=== PATIENT | female | born 1950 | race Caucasian/White ===

== ENCOUNTER 2021-09-14 10:05 | Outpatient (REF) | payer OTHER, SELFPAY ==
[2021-09-14 10:41] LABS: Binax Internal Control QC Valid; Binax Now Covid-19 Ag Negative (Negative)
== END 2021-09-14 10:06 | disposition home or self-care (01) ==
LOC: HO.LAB 10:05
PROVIDERS: Visit Provider Internal Medicine
DX: Z20.822 Contact with and (suspected) exposure to COVID-19 (principal)
CPT/HCPCS: C9803

== ENCOUNTER → 2021-10-12 15:09 | Outpatient (BNVA) | payer OTHER, SELFPAY | PROVIDERS: PCP Internal Medicine; Visit Provider Psychiatry & Neurology Neurology | DX: G51.32 Clonic hemifacial spasm, left (principal); G47.61 Periodic limb movement disorder; G47.33 Obstructive sleep apnea (adult) (pediatric); I10 Essential (primary) hypertension; E78.5 Hyperlipidemia, unspecified; F41.8 Other specified anxiety disorders; Z99.89 Dependence on other enabling machines and devices; Z95.0 Presence of cardiac pacemaker | CPT/HCPCS: 64612; 99212; J0585 ==

== ENCOUNTER → 2022-03-31 14:02 | Outpatient (BNVA) | payer OTHER, SELFPAY | PROVIDERS: PCP Internal Medicine; Visit Provider Psychiatry & Neurology Neurology | DX: G51.32 Clonic hemifacial spasm, left (principal); G47.61 Periodic limb movement disorder; G47.33 Obstructive sleep apnea (adult) (pediatric) | CPT/HCPCS: 64612; 99211; J0585 ==

== ENCOUNTER → 2022-06-15 14:50 | Outpatient (BNVA) | payer OTHER, SELFPAY | PROVIDERS: PCP Internal Medicine; Visit Provider Nurse Practitioner Family | DX: G47.33 Obstructive sleep apnea (adult) (pediatric) (principal) | CPT/HCPCS: 99212 ==

== ENCOUNTER → 2022-07-28 10:28 | Outpatient (BNVA) | payer OTHER, SELFPAY | PROVIDERS: PCP Internal Medicine; Visit Provider Psychiatry & Neurology Neurology | DX: G51.32 Clonic hemifacial spasm, left (principal); G47.33 Obstructive sleep apnea (adult) (pediatric); G47.61 Periodic limb movement disorder | CPT/HCPCS: 64612; 99211; J0585 ==

== ENCOUNTER → 2022-11-09 14:02 | Outpatient (BNVA) | payer OTHER, SELFPAY | PROVIDERS: PCP Internal Medicine; Visit Provider Psychiatry & Neurology Neurology | DX: G47.33 Obstructive sleep apnea (adult) (pediatric) (principal); G51.32 Clonic hemifacial spasm, left; G47.61 Periodic limb movement disorder | CPT/HCPCS: 64612; 99211; J0585 ==

== ENCOUNTER → 2022-12-07 15:04 | Outpatient (BNVA) | payer OTHER, SELFPAY | PROVIDERS: PCP Internal Medicine; Visit Provider Nurse Practitioner Family | DX: G47.33 Obstructive sleep apnea (adult) (pediatric) (principal); Z99.89 Dependence on other enabling machines and devices | CPT/HCPCS: 99212 ==

== ENCOUNTER 2023-03-01 13:21 | Outpatient (AMB) | payer OTHER, SELFPAY ==
--- NOTE | 2023-03-01 13:37 | A.OFFVIS_ITS ---
Intake Vital Signs 03/01/23 13:39 Height 5 ft 5 in Weight 196 lb BMI 32.6 BP 112/78 Blood Pressure Location Rt brachial Position Sitting Pulse 71 Pulse Source Pulse Oximeter Pulse Oximetry (%) 98 Oxygen Delivery Method Room Air Intake Visit Reasons: Botox(Pharm) Intake Note: Patient presents for botox injection Allergies aspirin Allergy (Intermediate, Verified 03/01/23 13:40) Blister Medication List - Last Reconciled 03/01/23 by Shaniqua Michel MD cephalexin 500 mg PO BID cholecalciferol (vitamin D3) 50 mcg PO DAILY citalopram 20 mg PO DAILY etanercept (Enbrel SureClick) mg subcut fluticasone propionate 50 mcg/actuation 1 spray intranasal DAILY furosemide 40 mg PO DAILY ipratropium-albuterol 0.5 mg-3 mg(2.5 mg base)/3 mL 3 mL inhalation QID PRN latanoprost 0.005% 1 drp ophthalmic (eye) BEDTIME metoprolol succinate ER 50 mg PO DAILY onabotulinumtoxinA (Botox) 100 units IM ONCE 90 days rosuvastatin 10 mg PO BEDTIME tiotropium bromide 1.25 mcg/actuation (Spiriva Respimat) 2.5 mcg inhalation DAILY tobramycin-dexamethasone 0.3-0.1 % (TobraDex) 1 drp ophthalmic (eye) QID HPI HPI Comments History of Present Illness Details 72y/o female comes for treatment with botox .and follow up of sleep apnea ??? side effects were explained again and patient agreed to the procedure . - side effects include increased weakness , droopy eyelids weakness of facial muscles etc. ??? Botulinum toxin type A lot no C [id number] expiration May 2025 was diluted with 1 cc of normal saline at a concentration of 10units in 0.1cc. ??? Muscles injected - L lateral canthus 15 ??? Units ??? Left lateral lower eyelid - 15 units ??? Left lateral upper eyelid - 5 units ??? TOTAL used- 35 units ??? Discarded 65units Her recent sleep study on 08/27/21 was c.w DANY responded to CPAP 12 , hypoxemia and PLMD. Patient wants to be referred for INSPIRE . she had a tele appointment and was told that she is not a candidate . she did not tolerate requip [facility] Medical History Anxiety Asthma Back pain Bronchitis Depression Hemifacial spasm of left side of face HTN (hypertension) Hyperlipidemia Memory loss Neck pain Obstructive sleep apnea Pacemaker Family History Father Heart disease Hair loss Mother Heart disease Diabetes Depression Social History Alcohol intake: never Patient Tobacco Use Status: Never used Tobacco Physical Exam Vital Signs: Last Vital Signs Pulse 71 03/01/23 13:39 BP 112/78 03/01/23 13:39 Pulse Ox 98 03/01/23 13:39 Oxygen Delivery Method Room Air 03/01/23 13:39 BMI result Body Mass Index 32.6 Const Other: left facial spasm General: cooperative, healthy appearing and comfortable Orientation/consciousness: patient oriented x3 Neuro General: patient oriented x3, tone normal, moves all extremities, no focal motor deficits and CN's II-XI intact bilaterally Office Procedures Botulinum toxin Injection 70787 - Facial Nerve Procedure code (CPT) selection complete Office Meds onabotulinumtoxinA Performing Provider: Shaniqua Michel MD Administered by: Shaniqua Michel MD on 03/01/23 14:08 Dose Route Admin Location Lot Number Expiration Date [facility] [place] 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 The total AHI was 101/hr and oxygen pako was 76%. Code(s): G47.33 - Obstructive sleep apnea (adult) (pediatric) (3) Periodic limb movement disorder: Code(s): G47.61 - Periodic limb movement disorder Plan Patient tolerated the procedure well she will call with any side effects Continue CPAP at 12 cm of water Orders: Orders AMB Botulinum toxin Injection - Patient Supplied Today G51.32 - Clonic hemifacial spasm, left Coding Level of Care Code Est Pt Level 1 (38665) Diagnoses Hemifacial spasm of left side of face G51.32 Obstructive sleep apnea G47.33 Periodic limb movement disorder G47.61 CPT Codes Botox Injection - Botox 2: 49811 - Facial Nerve ([id number])
[2023-03-01 13:39] VITALS: BP 112/78; PULSE 71; O2SAT 98; BMI 32.6
== END 2023-03-01 14:11 | disposition home or self-care (01) ==
LOC: HO.HSMS 13:21
PROVIDERS: PCP Internal Medicine; Visit Provider Psychiatry & Neurology Neurology
DX: G51.32 Clonic hemifacial spasm, left (principal)
CPT/HCPCS: 64612

== ENCOUNTER → 2023-03-01 13:21 | Outpatient (BNVA) | payer OTHER, SELFPAY | PROVIDERS: PCP Internal Medicine; Visit Provider Psychiatry & Neurology Neurology | DX: G51.32 Clonic hemifacial spasm, left (principal); G47.33 Obstructive sleep apnea (adult) (pediatric); G47.61 Periodic limb movement disorder | CPT/HCPCS: 64612; J0585 ==

== ENCOUNTER 2023-06-12 13:46 | Outpatient (AMB) | payer OTHER, SELFPAY ==
--- NOTE | 2023-06-12 14:03 | A.OFFVIS_ITS ---
Intake Vital Signs 06/12/23 14:19 Height 5 ft 5 in Weight 193 lb 2 oz BMI 32.1 BP 110/72 Blood Pressure Location Rt brachial Position Sitting Respiration 17 Pulse 72 Pulse Source Pulse Oximeter Pulse Oximetry (%) 97 Oxygen Delivery Method Room Air Intake Visit Reasons: Botox appt-confirmed Intake Note: Pt presents to the office for her Botox injections. Allergies aspirin Allergy (Intermediate, Verified 06/12/23 14:06) Blister Medication List - Last Reconciled 06/12/23 by Shaniqua Michel MD cephalexin 500 mg PO BID cholecalciferol (vitamin D3) 50 mcg PO DAILY citalopram 20 mg PO DAILY etanercept (Enbrel SureClick) mg subcut fluticasone propionate 50 mcg/actuation 1 spray intranasal DAILY furosemide 40 mg PO DAILY ipratropium-albuterol 0.5 mg-3 mg(2.5 mg base)/3 mL 3 mL inhalation QID PRN latanoprost 0.005% 1 drp ophthalmic (eye) BEDTIME metoprolol succinate ER 50 mg PO DAILY onabotulinumtoxinA (Botox) 100 units IM ONCE 90 days rosuvastatin 10 mg PO BEDTIME tiotropium bromide 1.25 mcg/actuation (Spiriva Respimat) 2.5 mcg inhalation DAILY tobramycin-dexamethasone 0.3-0.1 % (TobraDex) 1 drp ophthalmic (eye) QID HPI HPI Comments History of Present Illness Details 72y/o female comes for treatment with flor tox .and follow up of sleep apnea ??? side effects were explained again and patient agreed to the procedure . - side effects include increased weakness , droopy eyelids weakness of facial muscles etc. ??? Botulinum toxin type A lot no C [id number] expiration Sep 2025 was diluted with 1 cc of normal saline at a concentration of 10units in 0.1cc. ??? Muscles injected - L lateral canthus 15 ??? Units ??? Left lateral lower eyelid - 15 units ??? Left lateral upper eyelid - 5 units ??? TOTAL used- 35 units ??? Discarded 65units Her recent sleep study on 08/27/21 was c.w DANY responded to CPAP 12 , hypoxemia and PLMD. Patient wants to be referred for INSPIRE . she had a tele appointment and was told that she is not a candidate . she did not tolerate requip [facility] Medical History Neck pain Back pain Hemifacial spasm of left side of face Anxiety Depression Bronchitis Asthma Memory loss Hyperlipidemia HTN (hypertension) Obstructive sleep apnea Pacemaker Family History Father Heart disease Hair loss Mother Heart disease Diabetes Depression Social History Alcohol intake: never Patient Tobacco Use Status: Never used Tobacco Physical Exam Vital Signs: Last Vital Signs Pulse 72 06/12/23 14:19 Resp 17 06/12/23 14:19 BP 110/72 06/12/23 14:19 Pulse Ox 97 06/12/23 14:19 Oxygen Delivery Method Room Air 06/12/23 14:19 BMI result Body Mass Index 32.1 Const Other: left facial spasm General: cooperative, healthy appearing and comfortable Orientation/consciousness: patient oriented x3 Neuro General: patient oriented x3, tone normal, moves all extremities, no focal motor deficits and CN's II-XI intact bilaterally Office Procedures Botulinum toxin Injection 23706 - Facial Nerve Procedure code (CPT) selection complete Office Meds onabotulinumtoxinA 100 unit solution for injection Performing Provider: Shaniqua Michel MD Performing Location: [facility] [place] [facility] Administered by: Shaniqua Michel MD on 06/12/23 14:47 Dose Route Admin Location Dispensed Lot Number Expiration Date [facility] [employer] 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 The total AHI was 101/hr and oxygen pako was 76%. Code(s): G47.33 - Obstructive sleep apnea (adult) (pediatric) (3) Periodic limb movement disorder: Code(s): G47.61 - Periodic limb movement disorder Plan Patient tolerated the procedure well she will call with any side effects Continue CPAP at 12 cm of water Orders: Orders AMB Botulinum toxin Injection Today G51.32 - Clonic hemifacial spasm, left Coding Level of Care Code Est Pt Level 1 (28563) Diagnoses Hemifacial spasm of left side of face G51.32 Obstructive sleep apnea G47.33 Periodic limb movement disorder G47.61 CPT Codes Botox Injection - Botox 2: 34801 - Facial Nerve ([id number])
[2023-06-12 14:19] VITALS: BP 110/72; PULSE 72; RESP 17; O2SAT 97; BMI 32.1
== END 2023-06-12 14:36 | disposition home or self-care (01) ==
PROVIDERS: PCP Internal Medicine; Visit Provider Psychiatry & Neurology Neurology
DX: G51.32 Clonic hemifacial spasm, left (principal)
CPT/HCPCS: 64612

== ENCOUNTER → 2023-06-12 13:46 | Outpatient (BNVA) | payer OTHER, SELFPAY | PROVIDERS: PCP Internal Medicine; Visit Provider Psychiatry & Neurology Neurology | DX: G47.33 Obstructive sleep apnea (adult) (pediatric) (principal); G51.32 Clonic hemifacial spasm, left; G47.61 Periodic limb movement disorder | CPT/HCPCS: 64612; 99211; J0585 ==

== ENCOUNTER 2023-11-15 13:32 | Outpatient (AMB) | payer OTHER, SELFPAY ==
--- NOTE | 2023-11-15 13:34 | MHC.OFFVIS ---
Intake Vital Signs 11/15/23 13:35 Height 5 ft 5 in Weight 195 lb 8 oz BMI 32.5 BP 100/68 Blood Pressure Location Rt brachial Position Sitting Pulse 67 Pulse Source Pulse Oximeter Pulse Oximetry (%) 94 Oxygen Delivery Method Room Air Intake Visit Reasons: f/u for sleep apnea-Conf Intake Note: Pulmonogy told pt that she needs to have a study done to see if she can be of the oxygen. Real Estate Investment Analyst Required: Yes Real Estate Investment Analyst Name: Neetu [id number] Accompanied by: Self / Same As Patient Allergies aspirin Allergy (Intermediate, Verified 11/15/23 13:39) Blister HPI HPI Comments History of Present Illness Details 73 y/o female patient presents for follow up of DANY on CPAP. 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 Pt reports she has not been using CPAP for 4 months. She had Covid and was very sick. Pt has received new SD card for CPAP, but not put it in yet. Pt was evaluated by [facility] and was told that she is not candidate for Inspire. Pt states that she sleeps ok with CPAP and daytime sleepiness has improved. Pt's baseline PSG was severe degree of sleep apnea. The total AHI was 101/hr and oxygen pako was 76%. [facility] Medical History Neck pain Back pain Hemifacial spasm of left side of face Anxiety Depression Bronchitis Asthma Memory loss Hyperlipidemia HTN (hypertension) Obstructive sleep apnea Pacemaker Family History Father Heart disease Hair loss Mother Heart disease Diabetes Depression Social History Alcohol intake: never Patient Tobacco Use Status: Never used Tobacco Review of Systems Const All systems reviewed & are unremarkable except as noted in HPI and below Physical Exam Vital Signs: Last Vital Signs Pulse 67 11/15/23 13:35 BP 100/68 11/15/23 13:35 Pulse Ox 94 11/15/23 13:35 Oxygen Delivery Method Room Air 11/15/23 13:35 BMI result Body Mass Index 32.5 Const Other: left facial spasm General: cooperative, healthy appearing and comfortable Orientation/consciousness: patient oriented x3 Neuro General: patient oriented x3, tone normal, moves all extremities, no focal motor deficits and CN's II-XI intact bilaterally Assessment & Plan Assessment & Plan (1) Obstructive sleep apnea: Comment: Severe degree of DANY. The total AHI was 101/hr and oxygen pako was 76%. Code(s): G47.33 - Obstructive sleep apnea (adult) (pediatric) Plan New SD card inserted to her CPAP. Stressed CPAP compliance, use CPAP nightly and more than 4 hours. Wt reduction advised. Coding Level of Care Code Est Pt Level 3 (72890) Diagnoses Obstructive sleep apnea G47.33
[2023-11-15 13:35] VITALS: BP 100/68; PULSE 67; O2SAT 94; BMI 32.5
== END 2023-11-15 14:04 | disposition home or self-care (01) ==
PROVIDERS: PCP Internal Medicine; Visit Provider Nurse Practitioner Family
DX: G47.33 Obstructive sleep apnea (adult) (pediatric) (principal)
CPT/HCPCS: 99213

== ENCOUNTER → 2023-11-15 13:32 | Outpatient (BNVA) | payer OTHER, SELFPAY | PROVIDERS: PCP Internal Medicine; Visit Provider Nurse Practitioner Family | DX: G47.33 Obstructive sleep apnea (adult) (pediatric) (principal) | CPT/HCPCS: 99212 ==

== ENCOUNTER 2023-11-28 11:00 | Outpatient (AMB) | payer OTHER, SELFPAY ==
--- NOTE | 2023-11-28 11:05 | A.OFFVIS_ITS ---
Intake Vital Signs 11/28/23 11:08 Height 5 ft 5 in Weight 195 lb BMI 32.4 BP 122/64 Blood Pressure Location Lt brachial Position Sitting Respiration 17 Pulse 65 Pulse Source Pulse Oximeter Pulse Oximetry (%) 95 Oxygen Delivery Method Room Air Intake Visit Reasons: Botox-LVM Intake Note: Pt presents to the office for Botox injections. Sales Development Manager Required: No Allergies aspirin Allergy (Intermediate, Verified 11/28/23 11:05) Blister Medication List - Last Reconciled 11/28/23 by Shaniqua Michel MD cephalexin 500 mg PO BID cholecalciferol (vitamin D3) 50 mcg PO DAILY citalopram 20 mg PO DAILY etanercept (Enbrel SureClick) mg subcut fluticasone propionate 50 mcg/actuation 1 spray intranasal DAILY furosemide 40 mg PO DAILY ipratropium-albuterol 0.5 mg-3 mg(2.5 mg base)/3 mL 3 mL inhalation QID PRN latanoprost 0.005% 1 drp ophthalmic (eye) BEDTIME metoprolol succinate ER 50 mg PO DAILY onabotulinumtoxinA (Botox) 100 units IM ONCE 90 days rosuvastatin 10 mg PO BEDTIME tiotropium bromide 1.25 mcg/actuation (Spiriva Respimat) 2.5 mcg inhalation DAILY tobramycin-dexamethasone 0.3-0.1 % (TobraDex) 1 drp ophthalmic (eye) QID HPI HPI Comments History of Present Illness Details 73y/o female comes for treatment with flor tox .and follow up of sleep apnea ??? side effects were explained again and patient agreed to the procedure . - side effects include increased weakness , droopy eyelids weakness of facial muscles etc. ??? Botulinum toxin type A lot no C [id number] expiration December 2025 was diluted with 1 cc of normal saline at a concentration of 10units in 0.1cc. ??? Muscles injected - L lateral canthus 15 ??? Units ??? Left lateral lower eyelid - 15 units ??? Left lateral upper eyelid - 5 units ??? TOTAL used- 35 units ??? Discarded 65units [facility] Medical History Neck pain Back pain Hemifacial spasm of left side of face Anxiety Depression Bronchitis Asthma Memory loss Hyperlipidemia HTN (hypertension) Obstructive sleep apnea Pacemaker Family History Father Heart disease Hair loss Mother Heart disease Diabetes Depression Social History Alcohol intake: never Patient Tobacco Use Status: Never used Tobacco Physical Exam Vital Signs: Last Vital Signs Pulse 65 11/28/23 11:08 Resp 17 11/28/23 11:08 BP 122/64 11/28/23 11:08 Pulse Ox 95 11/28/23 11:08 Oxygen Delivery Method Room Air 11/28/23 11:08 BMI result Body Mass Index 32.4 Const Other: left facial spasm General: cooperative, healthy appearing and comfortable Orientation/consciousness: patient oriented x3 Neuro General: patient oriented x3, tone normal, moves all extremities, no focal motor deficits and CN's II-XI intact bilaterally Office Procedures Botulinum toxin Injection 21322 - Facial Nerve Procedure code (CPT) selection complete Office Meds onabotulinumtoxinA 100 unit solution for injection Performing Provider: Shaniqua Michel MD [place] [facility] [place] [facility] Administered by: Shaniqua Michel MD on 11/28/23 11:33 Dose Route Admin Location Dispensed Lot Number Expiration Date [facility] [place]NOTE 2[place] Machine Milker 35 unit subcut 100 units [id number] 12/18/25 0535-7954-30 ALLERGAN/BOTOX Comments: see HPI Assessment & Plan Assessment & Plan (1) Hemifacial spasm of left side of face: Code(s): G51.32 - Clonic hemifacial spasm, left (2) Obstructive sleep apnea: Comment: Severe degree of DANY. The total AHI was 101/hr and oxygen pako was 76%. Code(s): G47.33 - Obstructive sleep apnea (adult) (pediatric) (3) Periodic limb movement disorder: Code(s): G47.61 - Periodic limb movement disorder Plan Patient tolerated the procedure well she will call with any side effects Continue CPAP at 12 cm of water Orders: Orders AMB Botulinum toxin Injection Today G51.32 - Clonic hemifacial spasm, left Medications: New onabotulinumtoxinA 100 units subcut ONCE 1 ea 0RF hemifacial spasm G51.32 - Clonic hemifacial spasm, left Coding Level of Care Code Est Pt Level 1 (95876) Diagnoses Hemifacial spasm of left side of face G51.32 Obstructive sleep apnea G47.33 Periodic limb movement disorder G47.61 CPT Codes Botox Injection - Botox 2: 14582 - Facial Nerve ([id number])
[2023-11-28 11:08] VITALS: BP 122/64; PULSE 65; RESP 17; O2SAT 95; BMI 32.4
== END 2023-11-28 11:25 | disposition home or self-care (01) ==
PROVIDERS: PCP Internal Medicine; Visit Provider Psychiatry & Neurology Neurology
DX: G51.32 Clonic hemifacial spasm, left (principal)
CPT/HCPCS: 64612

== ENCOUNTER → 2023-11-28 11:00 | Outpatient (BNVA) | payer OTHER, SELFPAY | PROVIDERS: PCP Internal Medicine; Visit Provider Psychiatry & Neurology Neurology | DX: G47.33 Obstructive sleep apnea (adult) (pediatric) (principal); G51.32 Clonic hemifacial spasm, left; G47.61 Periodic limb movement disorder | CPT/HCPCS: 64612; 99211; J0585 ==

== ENCOUNTER 2024-04-17 13:49 | Outpatient (AMB) | payer OTHER, SELFPAY ==
--- NOTE | 2024-04-17 13:58 | MHC.OFFVIS ---
Vital Signs 04/17/24 13:59 Height 5 ft 5 in Weight 192 lb 8 oz BMI 32.0 BP 102/58 L Blood Pressure Location Rt brachial Position Sitting Respiration 16 Pulse 67 Pulse Source Pulse Oximeter Pulse Oximetry (%) 97 Oxygen Delivery Method Room Air Intake Visit Reasons: Botox Intake Note: Pt presents to the office for Botox injections for left sided hemifacial spasms. Software Team Leader Required: No Allergies aspirin Allergy (Intermediate, Verified 04/17/24 13:58) Blister Medication List - Last Reconciled 04/17/24 by Shaniqua Michel MD cephalexin 500 mg PO BID cholecalciferol (vitamin D3) 50 mcg PO DAILY citalopram 20 mg PO DAILY etanercept (Enbrel SureClick) mg subcut fluticasone propionate 50 mcg/actuation 1 spray intranasal DAILY furosemide 40 mg PO DAILY ipratropium-albuterol 0.5 mg-3 mg(2.5 mg base)/3 mL 3 mL inhalation QID PRN latanoprost 0.005% 1 drp ophthalmic (eye) BEDTIME metoprolol succinate ER 50 mg PO DAILY onabotulinumtoxinA (Botox) 100 units IM ONCE 90 days rosuvastatin 10 mg PO BEDTIME tiotropium bromide 1.25 mcg/actuation (Spiriva Respimat) 2.5 mcg inhalation DAILY tobramycin-dexamethasone 0.3-0.1 % (TobraDex) 1 drp ophthalmic (eye) QID HPI Comments Details: 73y/o female comes for treatment with botox .and follow up of sleep apnea ??? side effects were explained again and patient agreed to the procedure . - side effects include increased weakness , droopy eyelids weakness of facial muscles etc. ??? Botulinum toxin type A lot no C [id number] expiration Apr 2026 was diluted with 1 cc of normal saline at a concentration of 10units in 0.1cc. ??? Muscles injected - L lateral canthus 15 ??? Units ??? Left lateral lower eyelid - 15 units ??? Left lateral upper eyelid - 5 units ??? TOTAL used- 35 units ??? Discarded 65units [facility] Medical History Neck pain Back pain Hemifacial spasm of left side of face Anxiety Depression Bronchitis Asthma Memory loss Hyperlipidemia HTN (hypertension) Obstructive sleep apnea Pacemaker Family History Father Heart disease Hair loss Mother Heart disease Diabetes Depression Social History Alcohol intake: never Patient Tobacco Use Status: Never used Tobacco Physical Exam Vital Signs: Last Vital Signs Pulse 67 04/17/24 13:59 Resp 16 04/17/24 13:59 BP 102/58 L 04/17/24 13:59 Pulse Ox 97 04/17/24 13:59 Oxygen Delivery Method Room Air 04/17/24 13:59 BMI result Body Mass Index 32.0 Const Other: left facial spasm General: cooperative, healthy appearing and comfortable Orientation/consciousness: patient oriented x3 Neuro General: patient oriented x3, tone normal, moves all extremities, no focal motor deficits and CN's II-XI intact bilaterally Office Procedures Botulinum toxin Injection 72615 - Facial Nerve Procedure code (CPT) selection complete Office Meds onabotulinumtoxinA 100 unit solution for injection Performing Provider: Shaniqua Michel MD Performing Location: [facility] [place] [facility] Administered by: Shaniqua Michel MD on 04/17/24 14:26 Dose Route Admin Location Dispensed Lot Number Expiration Date 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 The total AHI was 101/hr and oxygen pako was 76%. Code(s): G47.33 - Obstructive sleep apnea (adult) (pediatric) Category: Medical (3) Periodic limb movement disorder: Code(s): G47.61 - Periodic limb movement disorder Category: Medical Plan Patient tolerated the procedure well she will call with any side effects Continue CPAP at 12 cm of water Orders: Orders AMB Botulinum toxin Injection Today G51.32 - Clonic hemifacial spasm, left Medications: New onabotulinumtoxinA 100 units subcut ONCE 1 ea 0RF left hemifacial spasm G51.32 - Clonic hemifacial spasm, left Coding Level of Care Code Est Pt Level 1 (80717) Diagnoses Hemifacial spasm of left side of face G51.32 Obstructive sleep apnea G47.33 Periodic limb movement disorder G47.61 CPT Codes Botox Injection - Botox 2: 86518 - Facial Nerve ([id number])
[2024-04-17 13:59] VITALS: BP 102/58; PULSE 67; RESP 16; O2SAT 97; BMI 32.0
== END 2024-04-17 14:17 | disposition home or self-care (01) ==
PROVIDERS: PCP Internal Medicine; Visit Provider Psychiatry & Neurology Neurology
DX: G51.32 Clonic hemifacial spasm, left (principal)
CPT/HCPCS: 64612

== ENCOUNTER → 2024-04-17 13:49 | Outpatient (BNVA) | payer OTHER, SELFPAY | PROVIDERS: PCP Internal Medicine; Visit Provider Psychiatry & Neurology Neurology | DX: G51.32 Clonic hemifacial spasm, left (principal); G47.33 Obstructive sleep apnea (adult) (pediatric); G47.61 Periodic limb movement disorder; Z99.89 Dependence on other enabling machines and devices | CPT/HCPCS: 64612; 99211; J0585 ==

== ENCOUNTER 2024-05-13 13:53 | Outpatient (AMB) | payer OTHER, SELFPAY ==
--- NOTE | 2024-05-13 13:56 | MHC.OFFVIS ---
Vital Signs 05/13/24 14:08 Height 5 ft 5 in Weight 192 lb BMI 31.9 BP 106/60 Blood Pressure Location Rt brachial Position Sitting Intake Visit Reasons: 6 mo f/u Intake Note: Patient presents for 6 month follow up Allergies aspirin Allergy (Intermediate, Verified 05/13/24 14:08) Blister Medication List - Last Reconciled 05/13/24 by KRYSTAL Michel cephalexin 500 mg PO BID cholecalciferol (vitamin D3) 50 mcg PO DAILY citalopram 20 mg PO DAILY etanercept (Enbrel SureClick) mg subcut fluticasone propionate 50 mcg/actuation 1 spray intranasal DAILY furosemide 40 mg PO DAILY ipratropium-albuterol 0.5 mg-3 mg(2.5 mg base)/3 mL 3 mL inhalation QID PRN latanoprost 0.005% 1 drp ophthalmic (eye) BEDTIME metoprolol succinate ER 50 mg PO DAILY onabotulinumtoxinA (Botox) 100 units IM ONCE 90 days rosuvastatin 10 mg PO BEDTIME tiotropium bromide 1.25 mcg/actuation (Spiriva Respimat) 2.5 mcg inhalation DAILY tobramycin-dexamethasone 0.3-0.1 % (TobraDex) 1 drp ophthalmic (eye) QID HPI Comments Details: 73-yr-old female presents for follow-up visit of sleep apnea. Pt denies any significant interval medical history changes. Pt reports she is unable to use her PAP machine as it causes her anxiety which she attributes to her asthma s/s. Attempted to retrieve 30, 60, 90 day PAP compliance report, however there is no usage since December 2023. She is f/b [place] [facility]. She does endorse chronic soreness in her throat. She was previously evaluated at [facility] for Inspire implant, however she was not a candidate as her DANY was too severe. Unfortunately even w/ expanded inclusion criteria, she would not be a candidate as her AHI was 101/hr (current upper limit is 100/hr). Pt states she is not very bothered by her limb movements at night. Pt did have an overnight pulse oximetry reading x's 1 night on 03/20/24, which demonstrated nocturnal hypoxemia w/ SpO2 < 90% x's 30% of study time, and O2 pako 66%. Per current PAP compliance data, pt did not use her CPAP during the Pulse oximetry reading study. [facility] Compliance Report Usage 12/21/2023 - 01/19/2024 Usage days 30 days (20%) >= 4 hours 1 days (3%) < 4 hours 5 days (17%) Average usage (days used) 3 hours 38 minutes AirSense 10 AutoSet Serial number [id number] Mode CPAP Set pressure 12 cmH2O EPR Fulltime EPR level 2 Therapy Leaks - L/min Median: 4.4 95th percentile: 17.4 Maximum: 72.2 Events per hour AI: 17.9 HI: 1.3 AHI: 19.2 Apnea Index Central: 0.5 Obstructive: 17.0 Unknown: 0.4 RERA Index 0.7 PFSH Medical History Neck pain Back pain Hemifacial spasm of left side of face Anxiety Depression Bronchitis Asthma Memory loss Hyperlipidemia HTN (hypertension) Obstructive sleep apnea Pacemaker Family History Father Heart disease Hair loss Mother Heart disease Diabetes Depression Social History Alcohol intake: never Patient Tobacco Use Status: Never used Tobacco Physical Exam Vital Signs: Last Vital Signs BP 106/60 05/13/24 14:08 BMI result Body Mass Index 31.9 Const General: no acute distress Orientation/consciousness: patient oriented x3 Resp Effort & Inspection: normal respiratory effort and able to speak in complete sentences Neuro Other: left facial spasm General: patient oriented x3 Psych Mental Status: mental status grossly normal Speech and movement: Clear speech present Attitude: cooperative Results Reviewed Results Reviewed: PAP compliance report- see HPI Assessment & Plan Assessment & Plan (1) Obstructive sleep apnea: Comment: Severe degree of DANY. The total AHI was 101/hr and oxygen pako was 76%. 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 Considered trialing azelastine nasal spray, adjusting PAP settings- EPR 3, trilaing anxiety tx before bedtime. She is not interested in undergoing f/u PAP titration study. Will request ENT consult to see if pt would be a candidate for alternate DANY tx's. Pt to follow-up in 6 months or sooner prn. Coding Level of Care Code Est Pt Level 4 (86505) Diagnoses Obstructive sleep apnea G47.33 Nocturnal hypoxemia G47.34
[2024-05-13 14:08] VITALS: BP 106/60; BMI 31.9
== END 2024-05-13 14:55 | disposition home or self-care (01) ==
PROVIDERS: PCP Internal Medicine; Visit Provider Nurse Practitioner Family
DX: G47.33 Obstructive sleep apnea (adult) (pediatric) (principal); G47.34 Idiopathic sleep related nonobstructive alveolar hypoventilation
CPT/HCPCS: 99214

== ENCOUNTER → 2024-05-13 13:53 | Outpatient (BNVA) | payer OTHER, SELFPAY | PROVIDERS: PCP Internal Medicine; Visit Provider Nurse Practitioner Family | DX: G47.33 Obstructive sleep apnea (adult) (pediatric) (principal); G47.34 Idiopathic sleep related nonobstructive alveolar hypoventilation; J45.909 Unspecified asthma, uncomplicated | CPT/HCPCS: 99212 ==

== ENCOUNTER 2024-09-02 13:01 | Outpatient (AMB) | payer OTHER, SELFPAY ==
--- NOTE | 2024-09-02 13:18 | MHC.OFFVIS ---
Vital Signs 09/02/24 13:19 Height 5 ft 5 in Weight 192 lb BMI 31.9 Intake Visit Reasons: Botox Intake Note: Patient presents for botox Allergies aspirin Allergy (Intermediate, Verified 05/13/24 14:08) Blister Medication List - Last Reconciled 09/02/24 by Shaniqua Michel MD cephalexin 500 mg PO BID cholecalciferol (vitamin D3) 50 mcg PO DAILY citalopram 20 mg PO DAILY etanercept (Enbrel SureClick) mg subcut fluticasone propionate 50 mcg/actuation 1 spray intranasal DAILY furosemide 40 mg PO DAILY ipratropium-albuterol 0.5 mg-3 mg(2.5 mg base)/3 mL 3 mL inhalation QID PRN latanoprost 0.005% 1 drp ophthalmic (eye) BEDTIME metoprolol succinate ER 50 mg PO DAILY onabotulinumtoxinA (Botox) 100 units IM ONCE 90 days rosuvastatin 10 mg PO BEDTIME tiotropium bromide 1.25 mcg/actuation (Spiriva Respimat) 2.5 mcg inhalation DAILY tobramycin-dexamethasone 0.3-0.1 % (TobraDex) 1 drp ophthalmic (eye) QID HPI Comments Details: 74y/o female comes for treatment with botox .and follow up of sleep apnea ??? side effects were explained again and patient agreed to the procedure . - side effects include increased weakness , droopy eyelids weakness of facial muscles etc. ??? Botulinum toxin type A lot no [id number] expiration October 2026 was diluted with 1 cc of normal saline at a concentration of 10units in 0.1cc. ??? Muscles injected - L lateral canthus 15 ??? Units ??? Left lateral lower eyelid - 15 units ??? Left lateral upper eyelid - 5 units ??? TOTAL used- 35 units ??? Discarded 65units [facility] Medical History Neck pain Back pain Hemifacial spasm of left side of face Anxiety Depression Bronchitis Asthma Memory loss Hyperlipidemia HTN (hypertension) Obstructive sleep apnea Pacemaker Family History Father Heart disease Hair loss Mother Heart disease Diabetes Depression Social History Alcohol intake: never Patient Tobacco Use Status: Never used Tobacco Physical Exam Vital Signs: BMI result Body Mass Index 31.9 Const Other: left facial spasm General: cooperative, healthy appearing and comfortable Orientation/consciousness: patient oriented x3 Neuro General: patient oriented x3, tone normal, moves all extremities, no focal motor deficits and CN's II-XI intact bilaterally Office Procedures Botulinum toxin Injection 96337 - Facial Nerve Procedure code (CPT) selection complete Office Meds onabotulinumtoxinA 100 unit solution for injection Performing Provider: Shaniqua Michel MD Performing Location: [facility] Administered by: Shaniqua Michel MD on 09/02/24 13:43 Dose Route Admin Location Dispensed Lot Number Expiration Date [facility] Helpdesk Manager 35 unit subcut 100 units [id number] ALLERGAN/BOTOX Comments: see hpi Assessment & Plan Assessment & Plan (1) Hemifacial spasm of left side of face: Code(s): G51.32 - Clonic hemifacial spasm, left Category: Medical (2) Obstructive sleep apnea: Comment: Severe degree of DANY. The total AHI was 101/hr and oxygen pako was 76%. Code(s): G47.33 - Obstructive sleep apnea (adult) (pediatric) Category: Medical (3) Periodic limb movement disorder: Code(s): G47.61 - Periodic limb movement disorder Category: Medical Plan Patient tolerated the procedure well she will call with any side effects Continue CPAP at 12 cm of water Orders: Orders AMB Botulinum toxin Injection Today G51.32 - Clonic hemifacial spasm, left Medications: New onabotulinumtoxinA 100 units subcut ONCE 1 ea 0RF hemifacial spasm G51.32 - Clonic hemifacial spasm, left Coding Level of Care Code Est Pt Level 1 (83121) Diagnoses Hemifacial spasm of left side of face G51.32 Obstructive sleep apnea G47.33 Periodic limb movement disorder G47.61 CPT Codes Botox Injection - Botox 2: 35730 - Facial Nerve ([id number])
[2024-09-02 13:19] VITALS: BMI 31.9
== END 2024-09-02 13:43 | disposition home or self-care (01) ==
PROVIDERS: PCP Internal Medicine; Visit Provider Psychiatry & Neurology Neurology
DX: G47.33 Obstructive sleep apnea (adult) (pediatric) (principal); G47.61 Periodic limb movement disorder; G51.32 Clonic hemifacial spasm, left
CPT/HCPCS: 64612; 99212

== ENCOUNTER → 2024-09-02 13:01 | Outpatient (BNVA) | payer OTHER, SELFPAY | PROVIDERS: PCP Internal Medicine; Visit Provider Psychiatry & Neurology Neurology | DX: G51.32 Clonic hemifacial spasm, left (principal); G47.33 Obstructive sleep apnea (adult) (pediatric); G47.61 Periodic limb movement disorder | CPT/HCPCS: 64612; 99212; J0585 ==

== ENCOUNTER 2025-02-03 12:40 | Outpatient (AMB) | payer OTHER, SELFPAY ==
--- NOTE | 2025-02-03 12:44 | MHC.OFFVIS ---
Vital Signs 02/03/25 12:56 Height 5 ft 5 in BP 112/80 Blood Pressure Location Rt brachial Position Sitting Pulse 71 Pulse Source Pulse Oximeter Pulse Oximetry (%) 96 Oxygen Delivery Method Room Air Intake Visit Reasons: Botox Intake Note: Patient presents for botox injection. practice supplied Allergies aspirin Allergy (Intermediate, Verified 02/03/25 12:57) Blister Medication List - Last Reconciled 02/03/25 by Shaniqua Michel MD cephalexin 500 mg PO BID cholecalciferol (vitamin D3) 50 mcg PO DAILY citalopram 20 mg PO DAILY etanercept (Enbrel SureClick) mg subcut fluticasone propionate 50 mcg/actuation 1 spray intranasal DAILY furosemide 40 mg PO DAILY ipratropium-albuterol 0.5 mg-3 mg(2.5 mg base)/3 mL 3 mL inhalation QID PRN latanoprost 0.005% 1 drp ophthalmic (eye) BEDTIME metoprolol succinate ER 50 mg PO DAILY onabotulinumtoxinA (Botox) 100 units IM ONCE 90 days rosuvastatin 10 mg PO BEDTIME tiotropium bromide 1.25 mcg/actuation (Spiriva Respimat) 2.5 mcg inhalation DAILY tobramycin-dexamethasone 0.3-0.1 % (TobraDex) 1 drp ophthalmic (eye) QID HPI Comments Details: 74y/o female comes for treatment with botox .and follow up of sleep apnea ??? side effects were explained again and patient agreed to the procedure . - side effects include increased weakness , droopy eyelids weakness of facial muscles etc. ??? Botulinum toxin type A lot no [id number] expiration May 2027 was diluted with 1 cc of normal saline at a concentration of 10units in 0.1cc. ??? Muscles injected - L lateral canthus 15 ??? Units ??? Left lateral lower eyelid - 15 units ??? Left lateral upper eyelid - 5 units ??? TOTAL used- 35 units ??? Discarded 65units [facility] Medical History Neck pain Back pain Hemifacial spasm of left side of face Anxiety Depression Bronchitis Asthma Memory loss Hyperlipidemia HTN (hypertension) Obstructive sleep apnea Pacemaker Family History Father Heart disease Hair loss Mother Heart disease Diabetes Depression Social History Alcohol intake: never Patient Tobacco Use Status: Never used Tobacco Physical Exam Vital Signs: Last Vital Signs Pulse 71 02/03/25 12:56 BP 112/80 02/03/25 12:56 Pulse Ox 96 02/03/25 12:56 Oxygen Delivery Method Room Air 02/03/25 12:56 Const Other: left facial spasm General: cooperative, healthy appearing and comfortable Orientation/consciousness: patient oriented x3 Neuro General: patient oriented x3, tone normal, moves all extremities, no focal motor deficits and CN's II-XI intact bilaterally Office Procedures Botulinum toxin Injection 12464 - Facial Nerve Procedure code (CPT) selection complete Office Meds onabotulinumtoxinA 100 unit solution for injection Performing Provider: Shaniqua Michel MD Performing Location: [facility] [place] [facility] Administered by: Shnaiqua Michel MD on 02/03/25 13:12 Dose Route Admin Location Dispensed Lot Number Expiration Date [facility] Textile Science Technician 35 unit subcut 100 units [id number] ALLERGAN/BOTOX Comments: see hpi Assessment & Plan Assessment & Plan (1) Hemifacial spasm of left side of face: Code(s): G51.32 - Clonic hemifacial spasm, left Category: Medical (2) Obstructive sleep apnea: Comment: Severe degree of DANY. The total AHI was 101/hr and oxygen pako was 76%. Code(s): G47.33 - Obstructive sleep apnea (adult) (pediatric) Category: Medical (3) Periodic limb movement disorder: Code(s): G47.61 - Periodic limb movement disorder Category: Medical Plan Patient tolerated the procedure well she will call with any side effects Continue CPAP at 12 cm of water Orders: Orders AMB Botulinum toxin Injection Today G51.32 - Clonic hemifacial spasm, left Medications: New onabotulinumtoxinA 100 units subcut ONCE 1 ea 0RF hemifacial spasm G51.32 - Clonic hemifacial spasm, left Coding Level of Care Code Est Pt Level 1 (71325) Diagnoses Hemifacial spasm of left side of face G51.32 Obstructive sleep apnea G47.33 Periodic limb movement disorder G47.61 CPT Codes Botox Injection - Botox 2: 92873 - Facial Nerve ([id number])
[2025-02-03 12:56] VITALS: BP 112/80; PULSE 71; O2SAT 96
--- OUTSIDE RECORDS SUMMARY | 2025-02-03 14:19 | XMS_ITS | Clinical Summary ---
Author Organization [facility] Address [address] [place] [address] Care Team Providers Care Monument Mason Name Role Phone Romi Green PA-C Primary Care Provider + [phone] Source Comments PLEASE NOTE, if this patient is a minor, it may be UNLAWFUL to discuss sensitive information that is contained in these records (such as FAMILY PLANNING, MENTAL HEALTH or SUBSTANCE ABUSE) with the minor patient's parent or other person without the patient's specific authorization.[facility] Allergies Active Allergy Reactions Criticality Noted Date Comments Aspirin Rash Medium Atorvastatin Asthma Fish Derived Anaphylaxis High 02/15/2016 Meperidine (Pf) 05/15/2013 Medications BOTOX 100 unit solr injection 7 Active CELEXA 20 mg tabletIndication s:Mild depression Take 1 Tab by mouth once daily 30 Tab 6 7 Active ENTRESTO 49-51 mg tabIndications:A trial fibrillation, unspecified type (HCC-CMS) Take 1 Tab by mouth 2 (two) times daily 60 Tab 5 7 Active albuterol sulfate (PROAIR HFA) 90 mcg/actuation inhalerIndicatio ns:Mild persistent asthma without complication (HHS-HCC) Inhale 2 Puffs into the lungs every 4 (four) hours as needed for shortness of breath or wheezing 18 g 6 7 Active ipratropium-albu terol (DUONEB) 0.5 mg-3 mg(2.5 mg base)/3 mL nebulizer solutionIndicati ons:Mild persistent asthma without complication (HHS-HCC) Take 3 mL by nebulization 4 (four) times daily as needed for wheezing 180 mL 10 7 Active furosemide (LASIX) 40 mg tablet 1.5 tabs daily 45 Tab 6 7 Active metoprolol succinate (TOPROL-XL) 25 mg 24 hr tabletIndication s:Essential hypertension, benign 1 am and 1/2 pm PER CARDIO 45 Tab 6 7 Active betamethasone valerate (VALISONE) 0.1 % cream Apply topically 2 (two) times daily Apply as a thin film. 15 g 3 7 Active acetaminophen (TYLENOL) 500 mg tablet Take 2 Tabs by mouth 3 (three) times daily 200 Tab 11 7 Active melatonin 1 mg tabletIndication s:Primary insomnia TAKE 1 TABLET BY MOUTH EVERY NIGHT AT BEDTIME NEEDED FOR SLEEP 30 Tab 8 Active BREO ELLIPTA 100-25 mcg/dose dsdvIndications: Mild persistent asthma without complication (HHS-HCC) INHALE 1 PUFF BY MOUTH INTO THE LUNGS EVERY DAY 60 Each 11 9 Active omeprazole (PRILOSEC) [address] capsule TAKE 1 CAPSULE BY MOUTH EVERY MORNING BEFORE BREAKFAST. DO NOT CRUSH OR CHEW 30 Cap 9 Active melatonin 1 mg tabletIndication s:Primary insomnia TAKE 1 TABLET BY MOUTH EVERY NIGHT AT BEDTIME NEEDED FOR SLEEP 30 Tab 11 0 Active Active Problems Problem Noted Date Diagnosed Date DANY on CPAP, [place] [facility] 05/21/2017 Asthma, mild persistent (HHS-HCC) 05/21/2017 ICD (implantable cardioverte r-defibrillator) in place. Medtronic BiV ICD 06/30/2016 Atrial fibrillation (HCC). p er Dr Prieto note may 2016 no trully afib, did not start AC. will cont monitoring with interrog of ICD 04/17/2016 H/O mammogram. Normal. January 2015 03/02/2015 Mitral regurgitation. Mod. l ast echo 04/2015. Follows with P[facility] Dr Prieto 09/02/2014 SOB (shortness of breath) 04/28/2014 Overview (04/28/2014): Result type: Complete PFT Result date: 03 April 2014 21:44 Result status: Auth (Verified) Result title: PFT's Complete Performed by: Christine Oneill MD on 03 April 2014 21:44 Verified by: Christine Oneill MD on 08 April 2014 10:20 Encounter info: [id number], [facility] [place], 04/02/2014 - 04/02/2014 Contributor system: [email or web address] * Final Report * PFT's Complete (Verified) PULMONARY LAB DATE:04/02/2014 SPIROMETRY: FEV1 1.95, 77% predicted; FVC 2.58, 78% predicted; FEV1/FVC 76%; PEFR 5.2, 84% predicted. Post bronchodilator FEV1 2.03, 81% (4% change); FVC 2.78, 84% (8% change); PEFR 5.97, 97% (15% change) MAXIMAL VOLUNTARY VENTILATION: 45.2, 51% predicted LUNG VOLUMES (N2): TLC 6.28, 116% predicted FRC 4.3, 145% predicted RV 3.7, 174% predicted DIFFUSING CAPACITY: DLCO 15.79, 73% predicted, not adjusted for hemoglobin VA[BTPS] 5.16, 98% predicted DLCO/VA 3.06, 75% predicted, not adjusted for hemoglobin DLCO and DLCO/VA 74% predicted adjusted for lung volume INTERPRETATION: The vital capacity is reduced. No significant response to bronchodilator. The MVV is reduced out of proportion to the FEV1, raising the question of respiratory muscle weakness or submaximal effort. Lung volumes show air trapping. The diffusing capacity is mildly reduced, although not adjusted for hemoglobin. The inspired volume is less than the vital capacity indicating that the actual DLCO may be underestimated. If asthma remains a concern, bronchial challenge test can be considered. Dictated by: Christine Oneill M.D. Signing Clinician: Christine Oneill M.D. Dictated: 04/03/2014 21:44:44 Transcribed: 04/07/2014 10:29:09 Transcribed by: ABDI DocID: [id number] PRELIMINARY REPORT UNLESS MANUALLY/ELECTRONICALLY SIGNED CC:Izabel Renee M.D. [address], [address] CKD (chronic kidney disease) Dr Blandon 2013 Overview (12/24/2013): Follows at [facility] CHF (congestive heart failure) 09/15/2013 Overview (06/30/2016): Follows at [facility] Cardiology Non isch CM NYHA class II, Stage C. Has Bi vent ICD in place, medtronic Essential hypertension, benign 04/02/2013 Mild depression 04/02/2013 Overview (04/02/2013): Sees pyschiatrist Hiatal hernia, [facility] GI 04/02/2013 H/O colonoscopy 04/02/2013 Overview (09/24/2014): Done in [place] Apparently with polyps No records available H/O: hysterectomy 04/02/2013 Overview (09/24/2014): Due to benign reason Nephrolithiasis, [facility] 04/02/2013 Overview (04/02/2013): Non obstructive and see urologist Mixed hyperlipidemia 04/02/2013 Resolved Problems Problem Noted Date Diagnosed Date Resolved Date Asthma exacerbation attacks ([facility]) 10/14/2013 02/25/2014 ASTHMA MILD INTERMITTENT 04/02/201304/2014 Family History Medical History Relation Name Comments Hypertension Father Nervous System Disorders Father par kinson Hypertension Mother Nervous System Disorders Mother par kinson disease. at age 89 after prolonged bed riden disease Nervous System Disorders Paternal Uncle p arkinson Hypertension Sister Relation Name Status Comments Brother Alive Father Mother Paternal Uncle Sister Alive Social History Tobacco Use Types Packs/Day Years Used Date Smoking Tobacco: Never Alcohol Use Standard Drinks/Week Comments No 0 (1 standard drink = 0.6 oz pur e alcohol) Social Connections Answer Date Recorded Social Connections and Isolation 0 04/12/2019 Financial Resource Strain Answer Date R ecorded Financial Resource Strain 0 2018 Stress Answer Date Recorded Stress 0 04/12/2019 Physical Activity Answer Date Recorded Physical Activity 0 04/12/2019 Food Insecurity Answer Date Recorded Food 0 04/12/2019 Transportation Needs Answer Date Record ed Transportation 0 04/12/2019 Housing Stability Answer Date Recorded Housing 0 04/12/2019 Safety and Environment Answer Date Sai rded Safety 0 04/12/2019 Utilities Answer Date Recorded Utilities 0 04/12/2019 Employment Answer Date Recorded Employment 0 04/12/2019 Comments No Sex and Gender Information Value Date Recorded Sex Assigned at Not on file Legal Sex Female 11:36 AM PDT Gender Identity Not on file Sexual Orientation Not on file Last Filed Vital Signs Vital Sign Reading Time Taken Comments Blood Pressure 118/70 05/21/2017 1:08 PM EDT Pulse 80 05/21/2017 1:08 PM EDT Temperature 37 ??C (98.6 ??F) 05/21/2017 1:08 PM EDT Respiratory Rate 16 05/21/2017 1:08 PM EDT Oxygen Saturation 97% 04/28/2014 1: 46 PM EDT Inhaled Oxygen Concentration - - Weight 85.6 kg (188 lb 11.2 oz) 05/21/2017 1:08 PM EDT Height 165.1 cm (5' 5 ) 10/12/2016 11:1 3 AM EST Body Mass Index 31.4 10/12/2016 11:13 AM EST Plan of Treatment Not on file Insurance [facility] Care Teams Monument Mason Relationship Specialty Start Date End Date Romi Green PA-C [address] [place] [phone] PCP - General Internal Medicine 03/19/17
== END 2025-02-03 13:08 | disposition home or self-care (01) ==
LOC: HO.HSMS 12:41
PROVIDERS: PCP Internal Medicine; Visit Provider Psychiatry & Neurology Neurology
DX: G51.32 Clonic hemifacial spasm, left (principal)
CPT/HCPCS: 64612

== ENCOUNTER → 2025-02-03 12:40 | Outpatient (BNVA) | payer OTHER, SELFPAY | PROVIDERS: PCP Internal Medicine; Visit Provider Psychiatry & Neurology Neurology | DX: G51.32 Clonic hemifacial spasm, left (principal); G47.33 Obstructive sleep apnea (adult) (pediatric); G47.61 Periodic limb movement disorder | CPT/HCPCS: 64612; 99211; J0585 ==

== ENCOUNTER 2025-05-06 11:17 | Outpatient (AMB) | payer OTHER, SELFPAY ==
--- NOTE | 2025-05-06 11:24 | MHC.OFFVIS ---
Vital Signs 05/06/25 11:25 Height 5 ft 5 in Weight 197 lb 2 oz BMI 32.8 BP 120/70 Blood Pressure Location Rt brachial Position Sitting Pulse 66 Pulse Source Pulse Oximeter Pulse Oximetry (%) 95 Oxygen Delivery Method Room Air Intake Visit Reasons: Botox Intake Note: Botox Smoking Pipe Mounter Required: No Accompanied by: Self / Same As Patient Allergies aspirin Allergy (Intermediate, Verified 05/06/25 11:24) Blister Medication List - Last Reconciled 05/06/25 by Shaniqua Michel MD cholecalciferol (vitamin D3) 50 mcg PO DAILY citalopram 20 mg PO DAILY etanercept (Enbrel SureClick) mg subcut fluticasone propionate 50 mcg/actuation 1 spray intranasal DAILY furosemide 40 mg PO DAILY ipratropium-albuterol 0.5 mg-3 mg(2.5 mg base)/3 mL 3 mL inhalation QID PRN latanoprost 0.005% 1 drp ophthalmic (eye) BEDTIME metoprolol succinate ER 50 mg PO DAILY onabotulinumtoxinA (Botox) 100 units IM ONCE 90 days rosuvastatin 10 mg PO BEDTIME tiotropium bromide 1.25 mcg/actuation (Spiriva Respimat) 2.5 mcg inhalation DAILY tobramycin-dexamethasone 0.3-0.1 % (TobraDex) 1 drp ophthalmic (eye) QID HPI Comments Details: 74y/o female comes for treatment with botox .and follow up of sleep apnea ??? side effects were explained again and patient agreed to the procedure . - side effects include increased weakness , droopy eyelids weakness of facial muscles etc. ??? Botulinum toxin type A lot no [id number] expiration Jun 2027 was diluted with 1 cc of normal saline at a concentration of 10units in 0.1cc. ??? Muscles injected - L lateral canthus 15 ??? Units ??? Left lateral lower eyelid - 15 units ??? Left lateral upper eyelid - 5 units ??? TOTAL used- 35 units ??? Discarded 65units [facility] Medical History Neck pain Back pain Hemifacial spasm of left side of face Anxiety Depression Bronchitis Asthma Memory loss Hyperlipidemia HTN (hypertension) Obstructive sleep apnea Pacemaker Family History Father Heart disease Hair loss Mother Heart disease Diabetes Depression Social History Alcohol intake: never Patient Tobacco Use Status: Never used Tobacco Physical Exam Vital Signs: Last Vital Signs Pulse 66 05/06/25 11:25 BP 120/70 05/06/25 11:25 Pulse Ox 95 05/06/25 11:25 Oxygen Delivery Method Room Air 05/06/25 11:25 BMI result Body Mass Index 32.8 Const Other: left facial spasm General: cooperative, healthy appearing and comfortable Orientation/consciousness: patient oriented x3 Neuro General: patient oriented x3, tone normal, moves all extremities, no focal motor deficits and CN's II-XI intact bilaterally Office Procedures Botulinum toxin Injection 21176 - Facial Nerve Procedure code (CPT) selection complete Office Meds onabotulinumtoxinA 100 unit solution for injection Performing Provider: Shaniqua Michel MD Performing Location: [facility] [place] [facility] Administered by: Shaniqua Michel MD on 05/06/25 11:44 Dose Route Admin Location Dispensed Lot Number Expiration Date [facility] Formula Weigher 35 unit subcut 100 units [id number] ALLERGAN/BOTOX Total Dispensed Waste 100 units 65 % Comments: see hpi Assessment & Plan Assessment & Plan (1) Hemifacial spasm of left side of face: Code(s): G51.32 - Clonic hemifacial spasm, left Category: Medical (2) Obstructive sleep apnea: Comment: Severe degree of DANY. The total AHI was 101/hr and oxygen pako was 76%. Code(s): G47.33 - Obstructive sleep apnea (adult) (pediatric) Category: Medical (3) Periodic limb movement disorder: Code(s): G47.61 - Periodic limb movement disorder Category: Medical Plan Patient tolerated the procedure well she will call with any side effects Continue CPAP at 12 cm of water Orders: Orders AMB Botulinum toxin Injection Today G51.32 - Clonic hemifacial spasm, left Coding Level of Care Code Est Pt Level 1 (85449) Diagnoses Hemifacial spasm of left side of face G51.32 Obstructive sleep apnea G47.33 Periodic limb movement disorder G47.61 CPT Codes Botox Injection - Botox 2: 00130 - Facial Nerve ([id number])
[2025-05-06 11:25] VITALS: BP 120/70; PULSE 66; O2SAT 95; BMI 32.8
--- OUTSIDE RECORDS SUMMARY | 2025-05-06 14:30 | XMS_ITS | Continuity of Care Document ---
Author Name [facility], Medical Address [address] [place] [address] Organization Unknown Address [address] [place] [address] Medications No known medications Problems No known problems
--- OUTSIDE RECORDS SUMMARY | 2025-05-06 14:30 | XMS_ITS | Clinical Summary ---
Author Organization [facility] Address [address] [place] [address] Care Team Providers Care Field Hockey Coach Name Role Phone Fior Vick MD Primary Care Provider [phone] Allergies No known active allergies Medications Medication Sig Dispensed Refills Start Date End Date Status Albuterol Sulfate 108 (90 Base) MCG/ACT AEPB Inhale into the lungs. 0 Active clotrimazole-betametha sone (LOTRISONE) cream Apply topically 2 (two) times a day. 0 Active Calcium Carb-Cholecalciferol 600-10 MG-MCG TABS Take by mouth. 0 Ac tive citalopram (CeleXA) 20 MG tablet Take 1 tablet (20 mg total) by mouth daily. 0 Active sacubitril-valsartan (Entresto) 24-26 MG per tablet Take 1 tablet by mouth 2 (two) times a day. 0 Active famotidine (PEPCID) 40 MG tablet Take 1 tablet (40 mg total) by mouth daily. 0 Active fluticasone (FLONASE) 50 MCG/ACT nasal spray spray/apply 1 spray in each nostril daily. 0 Active fluticasone-salmeterol (Advair HFA) 115-21 MCG/ACT inhaler Inhale 2 puffs into the lungs 2 (two) times a day. 0 Active furosemide (LASIX) 40 MG tablet Take 1 tablet (40 mg total) by mouth 2 (two) times a day. 0 Active Adalimumab (HUMIRA PEN SC) Inject under the skin. 0 Active Melatonin 1 MG TABS tablet Take 1 tablet (1 mg total) by mouth every night at bedtime. 0 Active metoprolol succinate (TOPROL-XL) 24 hr tablet 50 mg Take by mouth daily. 0 Active rosuvastatin (CRESTOR) tablet 10 mg Take 1 tablet (10 mg total) by mouth daily. 0 Active nystatin (MYCOSTATIN) 598737 UNIT/ML suspension Take 5 mL (500,000 Units total) by mouth 4 (four) times a day. 0 Active Fluticasone-Umeclidin- Vilant (Trelegy Ellipta) 100-62.5-25 MCG/ACT AEPB Inhale into the lungs. 0 Active B-12 Methylcobalamin 1000 MCG TBDP Take 1 tablet by mouth daily. 90 tablet 4 04/04/2024 Active Social History Tobacco Use Types Packs/Day Years Used Date Smoking Tobacco: Never Smokeless Tobacco: Never Tobacco Cessation:Counseling Given: Not Answered Alcohol Use Standard Drinks/Week Comments Never 0 (1 standard drink = 0.6 oz pur e alcohol) Sex and Gender Information Value Date Recorded Sex Assigned at Not on file Gender Identity Not on file Sexual Orientation Not on file Job Start Date Occupation Industry Not on file Not on file Not on file Last Filed Vital Signs Vital Sign Reading Time Taken Comments Blood Pressure 105/62 04/04/2024 12:42 PM EDT Pulse 58 04/04/2024 12:42 PM EDT Temperature 36.6 C (97.9 F) 04/04/2024 12:42 PM EDT Respiratory Rate - - Oxygen Saturation 96% 04/04/2024 12: 42 PM EDT Inhaled Oxygen Concentration - - Weight 87.9 kg (193 lb 12.8 oz) 024 12:42 PM EDT Height 165.1 cm (5' 5 ) 10/05/2023 12:0 4 PM EST Body Mass Index 32.25 10/05/2023 12:04 PM EST Plan of Treatment Health Maintenance Due Date Last Done Comments Hepatitis C Screening 1949 Depression Screening 1961 Preventative Health Evaluation 1967 DTap / Tdap / Td (1 - Tdap) 1968 Colon Cancer Screening (Colonoscopy) 1994 Fall Risk Assessment 2014 Osteoporosis Screening (DEXA Scan) 2014 RSV Adult > 60+ Yrs or (1 - 1-dose 75+ series) 2024 COVID-19 Vaccine (2 - 2024-2 6 season) 2025 11/12/2020 Influenza Vaccine (#1) 2025 0, 05/20/2019, 05/16/2019 Shingrix-Zoster Vaccine Completed 03/12/20 19, 01/10/2019 Pneumococcal Vaccine Completed 06/18/2020, 05/16/2019 Hepatitis B Vaccines Aged Out No long er eligible based on patient's age to complete this topic RSV Ped < 20 months Aged Out No longe r eligible based on patient's age to complete this topic Care Teams Field Hockey Coach Relationship Specialty Start Date End Date Fior Vick MD [address] [facility] [address] [place] [id number] PCP - General Internal Medicine 07/31/23
--- OUTSIDE RECORDS SUMMARY | 2025-05-06 14:30 | XMS_ITS | Encounter Summary ---
Author Organization [facility] Address [address] [place] [address] Encounters * [facility] [place] [facility] RN calling for blisters on head and face. She called into the [facility] triage line and tried to do a virtual visit but was unable to complete. She was recently on antibiotics for 2 months for a respiratory infection in January and February. after she started getting blisters on the back of her head, about 15 or more, she does have them on her right cheek and lip. The blisters seem to be drying up , she has been using triple antibiotic cream. She does have a h/o shingles in the past . The pt did not sound short of breath on the phone, She does have a mild Headaches and increased fatigue and feels warms { reasonForRequest : Patient has Blisters on her face and head, possible rash, or shingles, wants checked out. , patientReports : , denies :[],&quot ;chiefComplaints : Rash , pmh : COPD/Asthma, Coronary Artery Disease&q uot;, allergies : Aspirin , otherAllergies :null, painAssessment& quot;: , visitOutcome : , additionalComments : HPI reviewed } [facility] sent to the above address for the pt with a rash. Upon arrival the pt was found sitting in her chair awaiting my arrival. The pt stated she has had this rash for the last 10 days. The pt stated she was on antibiotics for about 2 months prior to this episode, and she has had the small little redraised area which are leaking a yellowish fluid. Upon exam there was a small spot on the pts right side of her mouth and a small spot on the back of her head on the right side as well. The pt stated she had just started using Head and Shoulders itch shampoo which has helped but it has not totally taken care of the issue. The pt has been using Hydrocortisone cream, Neosporin, and then Calamine lotion to her face to get rid of the spots. Dr Knapp was contacted and exam results and pictures were discussed. Dr Knapp recommended that the pt use the Hydrocortisone cream sparingly to the affected areas and twice a day for the next 5 days and see if there is any improvement, if no improvement thept was advised to call her PCP and make an appointment to get seen. The pt stated she has an appointment next week and will discuss it with them. The warning signs, chest pain, severe shortness of breath, syncope, fever, altered mental status, she should call 911 and be seen in the ED. The pt understood these instruction. SC1 cleared the call. WRR. PO_MEDICATION Written by [facility] on 2025-04-03
--- OUTSIDE RECORDS SUMMARY | 2025-05-06 14:30 | XMS_ITS | Clinical Summary ---
Author Organization [facility] Address [address] [place] [address] Care Team Providers Care Eyelet Machine Operator Name Role Phone Romi Green PA-C Primary Care Provider + [phone] Source Comments PLEASE NOTE, if this patient [...] 49-51 mg tabIndications:A trial fibrillation, unspecified type (CMS & HHS-HCC) Take 1 Tab by mouth 2 (two) [...] Noted Date Diagnosed Date DANY on CPAP, [facility] 05/21/2017 Asthma, mild persistent (HHS-HCC) 05/21/2017 [...] on 08 April 2014 10:20 Encounter info: [id number], [place], One Time OP, 04/02/2014 - 04/02/2014 Contributor system: [employer] * Final Report * PFT's Complete (Verified) [...] Transcribed: 04/07/2014 10:29:09 Transcribed by: ABDI DocID: [id number] PRELIMINARY REPORT UNLESS MANUALLY/ELECTRONICALLY SIGNED CC:Izabel Renee M.D. [address], [address] CKD (chronic kidney disease) Dr Blandon 2013 Overview (12/24/2013): Follows at [facility] Nephrology CHF (congestive heart failure) 09/15/2013 Overview (06/30/2016): Follows at [facility] Cardiology Non isch CM NYHA class II, Stage C. Has Bi vent ICD in place, medtronic Essential hypertension, benign 04/02/2013 Mild depression 04/02/2013 Overview (04/02/2013): Sees pyschiatrist Hiatal hernia, [facility] 04/02/2013 H/O colonoscopy 04/02/2013 Overview (09/24/2014): Done in [place] Apparently with polyps No records available H/O: hysterectomy 04/02/2013 Overview (09/24/2014): Due to benign reason Nephrolithiasis, PVU 04/02/2013 Overview (04/02/2013): Non obstructive and see urologist Mixed hyperlipidemia 04/02/2013 Resolved Problems Problem Noted Date Diagnosed Date Resolved Date Asthma exacerbation attacks ([facility] 10/14/2013 02/25/2014 ASTHMA MILD INTERMITTENT 04/02/201304/2014 Family [...] 80 05/21/2017 1:08 PM EDT Temperature 37 C (98.6 F) 05/21/2017 1:08 PM EDT Respiratory Rate 16 05/21/2017 1:08 PM EDT Oxygen Saturation 97% 04/28/2014 1:46 PM EDT Inhaled Oxygen Concentration - - Weight 85.6 kg (188 lb 11.2 oz) 05/21/2017 1:08 PM EDT Height 165.1 cm (5' 5 ) 10/12/2016 11:1 3 AM EST Body Mass Index 31.4 10/12/2016 11:13 AM EST Plan of Treatment Not on file Insurance [facility] Care Teams Eyelet Machine Operator Relationship Specialty Start Date End Date Romi Green PA-C [address] [place] [address] PCP - General Internal Medicine 03/19/17
--- OUTSIDE RECORDS SUMMARY | 2025-05-06 14:30 | XMS_ITS | Clinical Summary ---
Author Organization [facility] Address [address] [address] Phone Care Team Providers Care Sports Information Director Name Role Phone Francisco Vick MD Primary Care Provider [phone] Allergies Active Allergy Reactions Criticality Noted Date Comments Aspirin 07/04/2017 Other Reaction(s): OTHER Petechiae Atorvastatin Calcium 05/28/2024 Other Reaction(s): Myalgia and Joint Pain Meperidine 07/04/2017 Other Reaction(s): OTHER Disorientation, agitation Montelukast Sodium High 02/28/2024 Other Reaction(s): OTHER Patient states had anxiety and stomach pains. Other Nausea And Vomiting 10/16/2018 Pork, vomiting Seafood- swelling/edema Shellfish Containing Products Swelling 07/04/2017 Medications nystatin (MYCOSTATIN) 100,000 unit/mL suspension Take 5 mL (500,000 Units total) by mouth 4 (four) times a day. Active clotrimazole-betamethas one (LOTRISONE) 1-0.05 % cream Apply topically 2 (two) times a day. - Topical Active betamethasone dipropionate (DIPROSONE) 0.05 % cream APLIQUE AL AREA AFECTADA DOS VECES AL TRINITY Active dorzolamide (TRUSOPT) 2 % ophthalmic solution INSTILL PONGA MARIANA GOTA EN LOS OJOS DOS VECES AL TRINITY Active hydrocortisone 2.5 % cream APPLY TO FACE TWICE DAILY NEEDED FOR FLARES. DECREASE USAGE SYMPTOMS IMPROVE Active montelukast (SINGULAIR) 10 mg tablet Take 1 tablet (10 mg total) by mouth at bedtime. Active timolol (TIMOPTIC) 0.5 % ophthalmic solution PONGA MARIANA GOTA EN LOS DOS OJOS DOS VECES AL TRINITY Active predniSONE (DELTASONE) 2.5 mg tablet Take 1 tablet (2.5 mg total) by mouth 1 (one) time each day. Active metoprolol succinate (TOPROL-XL) 50 mg 24 hr tabletIndications:Moder ate persistent asthma, uncomplicated TOME 1 TABLETA POR VIA ORAL TODOS LOS KRAUSE 90 tablet 1 025 Active melatonin 1 mg tabletIndications:Prima ry insomnia Take 1 tablet (1 mg total) by mouth at bedtime as needed for sleep. at bedtime 90 tablet 3 025 Active furosemide (LASIX) 40 mg tabletIndications:Prima ry hypertension Take 1 tablet (40 mg total) by mouth 1 (one) time each day. 90 tablet 3 025 Active fluticasone propionate (FLONASE) 50 mcg/actuation nasal sprayIndications:Modera te persistent asthma without complication Administer 2 sprays into each nostril 1 (one) time each day. Shake gently. Before first use, prime pump. After use, clean tip and replace cap. 16 g Active famotidine (PEPCID) 40 mg tabletIndications:Gastr oesophageal reflux disease, unspecified whether esophagitis present Take 1 tablet (40 mg total) by mouth 1 (one) time each day. 90 tablet 3 025 Active dorzolamide-timoloL (COSOPT) 22.3-6.8 mg/mL ophthalmic solution Administer 1 drop into both eyes 2 (two) times a day. PONGA MARIANA GOTA EN LOS DOS OJOS DOS VECES AL D A 10 mL 025 Active calcium carbonate-vit D3-min 600 mg-10 mcg (400 unit) tabletIndications:Osteo arthritis of both knees, unspecified osteoarthritis type Take 1 tablet by mouth 2 (two) times a day. TOME MARIANA TABLETA DOS VECES AL TRINITY 90 tablet 3 025 Active EPINEPHrine (Auvi-Q) 0.3 mg/0.3 mL injectionIndications:An aphylaxis, sequela Inject 0.3 mL (0.3 mg total) into the thigh 1 (one) time for 1 dose. 1 each Active rosuvastatin (CRESTOR) 10 mg tabletIndications:Pure hypercholesterolemia Take 1 tablet (10 mg total) by mouth 1 (one) time each day. 90 tablet 3 Active metoprolol succinate (TOPROL-XL) 25 mg 24 hr tabletIndications:Prima ry hypertension Take 1 tablet (25 mg total) by mouth 1 (one) time each day. Do not crush or chew. 90 each 3 2025 Active sacubitriL-valsartan (Entresto) 24-26 mg per tabletIndications:Prima ry hypertension Take 1 tablet by mouth 2 (two) times a day. 180 each Active pantoprazole (PROTONIX) 40 mg EC tabletIndications:Gastr oesophageal reflux disease, unspecified whether esophagitis present Take 1 tablet (40 mg total) by mouth 1 (one) time each day before breakfast. TOME 1 TABLETA POR VIA ORAL TODOS LOS KRAUSE ANTES DE DESAYUNAR 90 tablet 3 Active citalopram (CeleXA) 20 mg tabletIndications:Anxie ty Take 1 tablet (20 mg total) by mouth 1 (one) time each day. 90 tablet 3 Active albuterol HFA (PROAIR HFA ; PROVENTIL HFA ; VENTOLIN HFA) 90 mcg/actuation inhalerIndications:Mode rate persistent asthma without complication Inhale 2 puffs by mouth every 6 (six) hours if needed for wheezing. 8.5 g 2025 Active albuterol 2.5 mg /3 mL (0.083 %) nebulizer solutionIndications:Mod erate persistent asthma without complication Take 3 mL (2.5 mg total) by nebulization every 4 (four) hours if needed for wheezing. 375 mL 1 Active Trelegy Ellipta 100-62.5-25 mcg inhalerIndications:Mode rate persistent asthma, uncomplicated,Chronic obstructive pulmonary disease, unspecified (CMS/HCC V24, CMS/HCC V28) TOME MARIANA INHALACION POR VIA ORAL TODOS LOS KRAUSE 180 each 3 025 Active mupirocin (BACTROBAN) 2 % ointment Apply topically 3 (three) times a day for 10 days. 22 g 025 2024 Active Problems Problem Noted Date Diagnosed Date End stage heart failure ([facility] V24, [facility] V2 8) 04/14/2025 Assessment & Plan (04/14/2025 2:31 PM EDT): Chronic kidney disease (CKD) , stage IV (severe) ([facility] V24, [facility] V28) 04/14/2025 Assessment & Plan (04/14/2025 2:31 PM EDT): Paroxysmal atrial fibrillation ([facility] V24, [facility] V28) 04/14/2025 Assessment & Plan (04/14/2025 2:31 PM EDT): Stage 3b chronic kidney disease ([facility] V24, S/[facility] V28) 04/14/2025 Assessment & Plan (04/14/2025 2:31 PM EDT): Obesity (BMI 30-39.9) 02/18/2025 Palpitations 10/20/2024 Assessment & Plan (10/20/2024 12:35 PM EST): For two months with palpitations. Device check has not shown any significant arrhythmias. This could be ventricular and/or atrial ectopy. We will get a 24hr monitor. Orders: ECG 12 lead Cardiac holter monitor (<= 48 hours); Future Renal stones 05/28/2024 Pre-operative cardiovascular examination 024 History of colon polyps 05/28/2024 COVID-19 07/18/2022 Overview (05/28/2024): Home test Dyspnea on exertion 01/10/2021 Assessment & Plan (02/26/2025 3:13 PM EDT): Multifactorial exertional breathlessness in a patient with advanced reactive airway disease and a history of diastolic heart failure. Her recent symptoms appear to be due to asthma and she is recuperating well. It is not surprising that she has an element of persistent fatigue. She does not have orthopnea or PND and at this time I do not feel that there is a significant contribution from heart failure. I encouraged her to continue to keep an eye on her weight and peripheral edema. Will make arrangements for follow-up assessment in about 6 months or sooner as needed. Orders: ECG 12 lead Nonischemic cardiomyopathy (CMS/HCC V24, CMS/HCC V28) 11/09/2020 Overview (10/20/2024): nonischemic cardiomyopathy with LBBB and severe mitral regurgitation status post BiV ICD implantation with normalization of LV systolic function and improvement of mitral regurgitation Assessment & Plan (02/26/2025 3:13 PM EDT): See above. Orders: ECG 12 lead Assessment & Plan (10/20/2024 12:35 PM EST): Normalized LV systolic function with resolution of MR following BiV ICD for LBBB. Continue with furosemide, metoprolol and Entresto. Consider adding SGLT2 inhibitor. Cortical age-related cataract of right eye 11/02 DANY (obstructive sleep apnea) 12/19/2019 Overview (05/28/2024): [facility] Polysomnogram: Date 03/25/2021; Wt 192#; BMI 32; SE 15%; SM 21%; REM 0%; RDI 101 (AHI 101), Central apneas 1; Obstructive apneas 66; Mixed apneas 0; hypopneas 55; RERAs 0; average oxygen saturation 90% (lowest 76% - with saturations <88% for 5% or more of study); PLMs 0. [facility] treatment polysomnogram 09/06/2021; 99; BMI 33. Study limited by short sleep time. Respiratory events appeared well controlled with CPAP at 12 although still mild hypoxemia noted at that setting. Recommendations for CPAP at 12 with supplemental oxygen flow 2 L or a home oximetry on CPAP to see if the CPAP corrects or if hypoxemia still exists. Study ordered by Dr. Michel @ [facility]. - Obstructive Sleep Apnea - severe; mostly hypopneas and obstructive apneas; with sleep related hypoventilation by 2020 polysomnogram. Assessment & Plan (02/26/2025 3:13 PM EDT): Orders: ECG 12 lead Osteoarthritis of both knees 10/14/2019 Overview (05/28/2024): Right greater than left on x-ray Intestinal metaplasia of gastric mucosa 07/17/20 18 Hyperlipidemia 03/19/2018 Assessment & Plan (04/14/2025 2:31 PM EDT): Assessment & Plan (02/26/2025 3:13 PM EDT): Orders: ECG 12 lead Assessment & Plan (10/20/2024 12:35 PM EST): April 2021 - HDL 66, LDL 93. Continue with rosuvastatin. Hypertension 10/25/2017 Assessment & Plan (04/14/2025 2:31 PM EDT): Assessment & Plan (02/26/2025 3:13 PM EDT): Orders: ECG 12 lead Assessment & Plan (10/20/2024 12:35 PM EST): Soft and symptomatic at times. Continue with furosemide, metoprolol and Entresto for now. Will consider adjustments if she becomes more symptomatic. Asthma 10/25/2017 GERD (gastroesophageal reflux disease) 7 Rheumatoid arthritis, seropo sitive, multiple sites ([facility] V24, [facility] V28) 07/28/2017 Overview (05/28/2024): Onset ~ 2002 Enbrel started 02/04 Assessment & Plan (04/14/2025 2:31 PM EDT): Pacemaker 07/28/2017 Overview (10/20/2024): September 2014 - implantation of Medtronic BiV defibrillator Assessment & Plan (02/26/2025 3:13 PM EDT): Biventricular pacemaker which is followed in our device clinic. We will be monitoring her thoracic impedance which may reflect an element of fluid retention as well as pacemaker functionality. Orders: ECG 12 lead Assessment & Plan (10/20/2024 12:35 PM EST): Device functioning normally on last check. Continue to monitor through [facility] device clinic. Orders: ECG 12 lead Chronic diastolic congestive heart failure (CMS/HCC V24, CMS/HCC V28) 07/28/2017 Overview (10/20/2024): May 2024 echocardiogram preserved left ventricular systolic function LVEF 55 to 60%, normal regional wall motion, mild diastolic dysfunction, normal biatrial size, normal right ventricular size and systolic function and no hemodynamically significant valvular disease Assessment & Plan (04/14/2025 2:31 PM EDT): Assessment & Plan (02/26/2025 3:13 PM EDT): The patient has a remote history of nonischemic cardiomyopathy with severe mitral regurgitation. She has had a dramatic response to biventricular pacemaker implantation with normalization of left ventricular dysfunction and significant improvement of mitral regurgitation. At this time she appears euvolemic. Accordingly I am not making any recommendations for changes in her medical regimen. Orders: ECG 12 lead Assessment & Plan (10/20/2024 12:35 PM EST): Echocardiogram from May 2024 showed preserved LV systolic function. She appears compensated on exam. Continue with furosemide, metoprolol and Entresto. Consider adding SGLT2 inhibitor. We reviewed heart failure management including low- sodium diet, symptom surveillance, daily weights and medication compliance. Depression 06/22/2017 Eczema 06/22/2017 Encounters Date Type Department Care Team Description 04/14/2025 2:00 PM EDT Office Visit Internal Medicine - [address] [place] [address] Francisco Vick MD Primary hypertension (Primary Dx); Encounter for subsequent annual wellness visit (AWV) in Medicare patient; Mixed hyperlipidemia; Rheumatoid arthritis, seropositive, multiple sites ([facility] V24, [facility] V28); Chronic diastolic congestive heart failure ([facility] V24, [facility] V28); End stage heart failure ([facility] V24, [facility] V28); Chronic kidney disease (CKD), stage IV (severe) ([facility] V24, [facility] V28); Paroxysmal atrial fibrillation ([facility] V24, [facility] V28); Stage 3b chronic kidney disease ([facility] V24, [facility] V28) 04/10/2025 9:15 AM EDT Ancillary Procedure [facility] [address] [place] [address] 03/13/2025 1:25 PM EDT Ancillary Procedure [facility] [address] [place] [address] 02/27/2025 Telephone [facility] [address] [place] [address] Francisco Vick MD 02/26/2025 2:30 PM EDT Office Visit [address] [place] [address] Adeline Bustos MD Dyspnea on exertion (Primary Dx); DANY (obstructive sleep apnea); Chronic diastolic congestive heart failure ([facility] V24, [facility] V28); Primary hypertension; Nonischemic cardiomyopathy ([facility] V24, [facility] V28); Pacemaker; Pure hypercholesterolemia 02/25/2025 9:30 AM EDT Office Visit Internal Medicine - [place] [address] [place] [id number] Jenn Luther NP Thoracic aortic aneurysm without rupture, unspecified part ([facility] V24) (Primary Dx); Anaphylaxis, sequela; Gastroesophageal reflux disease, unspecified whether esophagitis present; Osteoarthritis of both knees, unspecified osteoarthritis type; Anxiety; Primary insomnia; Moderate persistent asthma without complication; Primary hypertension; Pure hypercholesterolemia; Rheumatoid arthritis, seropositive, multiple sites ([facility] V24, [facility] V28); DANY (obstructive sleep apnea); Chronic diastolic congestive heart failure ([facility] V24, [facility] V28); Chronic kidney disease, unspecified CKD stage 02/17/2025 2:45 PM EDT Office Visit Pulmonolgy - [place] [address] [facility] [address] [place] [address] Romi Donovan NP Moderate persistent asthma without complication (Primary Dx); Dyspnea on exertion; Rheumatoid arthritis, seropositive, multiple sites ([facility] V24, [facility] V28); DANY (obstructive sleep apnea); Chronic diastolic congestive heart failure ([facility] V24, [facility] V28); Obesity (BMI 30-39.9) 02/11/2025 Telephone Internal Medicine - [place] [address] [facility] [address] [place] [address] Francisco Vick MD 02/05/2025 1:14 PM EDT - 02/05/2025 7:02 PM EDT Emergency [facility] Emergency [address] [place] [address] Moderate persistent asthma with exacerbation (Primary Dx); Thoracic aortic aneurysm without rupture, unspecified part ([facility] V24); Community acquired pneumonia, unspecified laterality Discharge Disposition: Home or Self Care 02/03/2025 3:50 PM EDT Ancillary Procedure [facility] [address] [facility] [address] [place] [phone] from Last 3 Months Immunizations Name Administration Dates Next Due Influenza trivalent, 0.5mL ( Fluzone High-dose) 65yo and older 06/18/2020,05/16/2019 Pneumococcal conjugate 13 va lent (Prevnar 13, PCV13) 2mo and older 05/16/2019 Pneumococcal polysaccharide 23 valent (Pneumovax 23) 2yo and older 06/18/2020 Zoster recombinant (Shingrix) 19yo and older ,01/10/2019 Surgical History Surgery Date Site/Laterality Comments PACEMAKER IMPLANT PROCEDURE: HISTORICAL PACEMAKER HYSTERECTOMY PROCEDURE: HISTORICAL HYSTERECTOMY COLONOSCOPY PROCEDURE: HISTORICAL COLONOSCOPY BLADDER SUSPENSION PROCEDURE: HISTORICAL BLADDER SUSPENSION CHOLECYSTECTOMY PROCEDURE: HISTORICAL CHOLECYSTECTOMY Medical History Medical History Date Comments CHF (congestive heart failur e) ([facility] V24, [facility] V28) 07/28/2017 DX:CHF (congestive heart holley lure) ([facility]) GERD (gastroesophageal reflux disease) 07/28/2017 DX:GERD (gastroesophageal reflux disease) Pacemaker 07/28/2017 DX:Pacemaker RA (rheumatoid arthritis) ([facility] V24, [facility] V28) 07/28/2017 DX:RA (rheumatoid arthritis) ([facility]) Asthma DX:Asthma Renal stones DX:Renal stones Depression 06/22/2017 DX:Depression Eczema 06/22/2017 DX:Eczema History of colon polyps 09/01/2016 DX:Histo ry of colon polyps Hyperlipidemia 03/19/2018 DX:Hyperlipidemi a Hypertension 10/25/2017 DX:Hypertension Seropositive rheumatoid arth ritis of multiple joints ([facility] V24, [facility] V28) 07/28/2017 DX:Seropositive rheumatoid arthritis of multiple joints ([facility]) Rheumatoid arthritis, seropo sitive, multiple sites ([facility] V24, [facility] V28) 07/28/2017 DX:Rheumatoid arthritis, seropositive, multiple sites ([facility]); COMMENT: Onset - 2002 Enbrel started 02/04 Osteoarthritis of both knees 10/14/2019 DX: Osteoarthritis of both knees; COMMENT: Right greater than left on x-ray Family History Medical History Relation Name Comments Diabetes Brother 1 Stroke Brother 1 Other cancer Brother 2 Stroke Father Arthritis Mother Diabetes Mother Other: lupus Other niece Arthritis Sister 1 Thyroid disease Sister 1 Arthritis Sister 2 Thyroid disease Sister 2 Other cancer Uncle Relation Name Status Comments Brother 1 Brother 2 Father Mother Other Sister 1 Sister 2 Uncle Social History Tobacco Use Types Packs/Day Years Used Date Smoking Tobacco: Never Smokeless Tobacco: Never Tobacco Cessation:Counseling Given: Not Answered Alcohol Use Standard Drinks/Week Comments No 0 (1 standard drink = 0.6 oz pur e alcohol) Comments Unknown Sex and Gender Information Value Date Recorded Sex Assigned at Female 01/05/2025 3:57 PM EDT Legal Sex Female 10:45 PM EST Gender Identity Female 01/05/2025 3:57 PM EDT Sexual Orientation Not on file Obstetrics History Last Filed Vital Signs Vital Sign Reading Time Taken Comments Blood Pressure 108/64 04/14/2025 1:57 PM EDT Pulse 71 04/14/2025 1:57 PM EDT Temperature 36.4 C (97.5 F) 04/14/2025 1:57 PM EDT Respiratory Rate 18 04/14/2025 1:57 PM EDT Oxygen Saturation 97% 04/14/2025 1:57 PM EDT Inhaled Oxygen Concentration - - Weight 86.2 kg (190 lb) 04/14/2025 1:57 PM EDT Height 165.1 cm (5' 5 ) 04/14/2025 1:57 PM EDT Body Mass Index 31.62 04/14/2025 1:57 PM EDT Plan of Treatment Upcoming Encounters Date Type Department Care Team (Late st Contact Info) Description 05/21/2025 1:30 PM EDT Ancillary Procedure [facility] [address] [facility] [address] [place] [address] 08/14/2025 2:30 PM EST Office Visit Internal Medicine - [place] [address] [place] [phone] Francisco Vick MD [address] [facility] [address] [place] [address] Health Maintenance Due Date Last Done Comments DTaP,Tdap,and Td Vaccines (1 - Tdap) 1969 COVID-19 Vaccine (2 - Roberto risk series) 12/10/2020 11/12/2020 Falls Risk Assessment 07/29/2022 Social Influencers of Health Screening 07/29/2022 RSV Immunization Adult Patients (1 - 1-dose 75+ series) 2024 Influenza Vaccine (#1) 2025 06/18/2020, 2018 Hypertension/CHF/CAD Annual BMP Blood Test 02/05/2026 02/05/2025, 02/02/2025, 08/01/2024, Additional history exists Medicare Annual Wellness Visit 04/14/2026 04/14/2025 Cholesterol Screening (Lipid Panel) 05/22/2027 05/22/2022, 05/22/2022 Colorectal Cancer Screening: Colonoscopy 01/03/2031 01/03/2021, 01/03/2021 Osteoporosis Screening (Bone Density Screening) 06/22/2033 06/22/2023 Hepatitis C Screening Completed 12/10/2017 Zoster Vaccines Completed 03/12/2019, 01/10/2019 Pneumococcal Vaccine: 50+ Years Completed 06/18/2020, 05/16/2019 Breast Cancer Screening Discontinued 06/21/20, 06/21/2023, 06/02/2022, Additional history exists Depression Screening Completed 04/14/2025 HIB Vaccines Aged Out No longer eligi ble based on patient's age to complete this topic HPV Vaccines Aged Out No longer eligi ble based on patient's age to complete this topic Hepatitis A Vaccines Aged Out No long er eligible based on patient's age to complete this topic Hepatitis B Vaccines Aged Out No long er eligible based on patient's age to complete this topic IPV Vaccines Aged Out No longer eligi ble based on patient's age to complete this topic MMR Vaccines Aged Out No longer eligi ble based on patient's age to complete this topic Meningococcal ACWY Vaccine Aged Out N o longer eligible based on patient's age to complete this topic Meningococcal B Vaccine Aged Out No l onger eligible based on patient's age to complete this topic RSV Immunization Patients Under 20 months Aged Out No longer eligible based on patient's age to complete this topic Varicella Vaccines Aged Out No longer eligible based on patient's age to complete this topic Medical Devices Implanted Type Area Manager Convention Device Identifier Shelf Expiration Date Model / Serial / Lot Medt-Card Claria Mri Quad Crtd [id number] Implanted:08/2021 (Quantity not on file) Cardiac SUGAR CANE GROWER-D ICD [employer] - CARDIAC RHYTH-CRDM CLARIA MRI QUAD [id number] [id number] / [id number] / Procedures Procedure Name Priority Date/Time Associated Diagnosis Comments CARDIAC DEVICE CHECK- REMOTE- MURJ Routine 04/10/2025 9:14 AM EDT CARDIAC DEVICE CHECK- REMOTE- MURJ Routine 03/13/2025 1:21 PM EDT ECG 12-LEAD Routine 02/26/2025 2:48 PM EDT Dyspnea on exertion DANY (obstructive sleep apnea) Chronic diastolic congestive heart failure (CMS/HCC V24, CMS/HCC V28) Primary hypertension Nonischemic cardiomyopathy (CMS/HCC V24, CMS/HCC V28) Pacemaker Pure hypercholesterolemia ECG ANNOTATED 02/06/2025 CT CHEST WO CONTRAST STAT 02/05/2025 5:27 PM EDT TROPONIN I HIGH SENSITIVITY STAT 02/05/2025 4:13 PM EDT XR CHEST 2 VIEWS STAT 02/05/2025 2:34 PM EDT TROPONIN I HIGH SENSITIVITY STAT 02/05/2025 1:49 PM EDT CBC WITH AUTO DIFFERENTIAL STAT 02/05/2025 1:49 PM EDT B-TYPE NATRIURETIC PEPTIDE STAT 02/05/2025 1:49 PM EDT BASIC METABOLIC PANEL STAT 02/05/2025 1:49 PM EDT CBC AND DIFFERENTIAL STAT 02/05/2025 1:49 PM EDT RESPIRATORY VIRUS PANEL MOLECULAR STUDY STAT 02/05/2025 1:49 PM EDT ECG 12-LEAD STAT 02/05/2025 1:32 PM EDT CARDIAC DEVICE CHECK- REMOTE- MURJ Routine 02/03/2025 3:47 PM EDT [facility] DEXA AXIAL SKELETON Routine 06/22/2023 8:01 AM EDT Age-related osteoporosis without current pathological fracture [facility] SCREENING DIGITAL Routine 06/21/2023 3:17 PM EDT Encounter for screening mammogram for malignant neoplasm of breast LIPID PANEL Routine 05/22/2022 COLONOSCOPY Routine 01/03/2021 HEPATITIS C SCREENING Routine 12/10/2017 from Last 3 Months or Most Recently Relevant to Health Maintenance Results * Cardiac device check - Remote- MURJ (04/10/2025 9:14 AM EDT) Only the most recent of3 resultswithin the time period is included. Date Time Interrogation Session [id number] CV DEVICE CHECK Type Interrogation Session Remote CV DEVICE CHECK Implantable Pulse Generator Manager Convention MDT CV DEVICE CHECK Implantable Pulse Generator Type SUGAR CANE GROWER-D CV DEVICE CHECK Implantable Pulse Generator Model Claria MRI Quad CRTD [id number] CV DEVICE CHECK Implantable Pulse Generator Serial Number [id number] CV DEVICE CHECK Implantable Pulse Generator Implant Date [id number] CV DEVICE CHECK Battery Remaining Longevity 85.0 CV DEVICE CHECK Battery Voltage 2.990 CV D EVICE CHECK Battery MIXING MACHINE TENDER CORK ROD Trigger 2.727 CV DEVICE CHECK Battery Status Middle of Service CV DEVICE CHECK Capacitor Charge Time 3.713 CV DEVICE CHECK Jon Statistic RA Percent Paced 2.26 CV DEVICE CHECK Atrial Tachy Statistic AT/AF [place] Percent 0.00 CV DEVICE CHECK Lead Channel Sensing Intrinsic Amplitude 0.625 CV DEVICE CHECK Lead Channel Setting Sensing Sensitivity 0.30 CV DEVICE CHECK Lead Channel Impedance Value 494 CV DEVICE CHECK Lead Channel Pacing Threshold Amplitude 1.875 CV DEVICE CHECK Lead Channel Pacing Threshold Pulse Width 0.4 CV DEVICE CHECK Lead Channel RA Pacing Threshold Date 2025-04-04 CV DEVICE CHECK Lead Channel Setting Pacing Amplitude 2.500 CV DEVICE CHECK Lead Channel Setting Pacing Pulse Width 1.0 CV DEVICE CHECK Lead Channel Sensing Intrinsic Amplitude 12.750 CV DEVICE CHECK Lead Channel Setting Sensing Sensitivity 0.30 CV DEVICE CHECK Lead Channel Impedance Value 342 CV DEVICE CHECK Lead Channel Pacing Threshold Amplitude 0.750 CV DEVICE CHECK Lead Channel Pacing Threshold Pulse Width 0.4 CV DEVICE CHECK Lead Channel RV Pacing Threshold Date 2025-04-04 CV DEVICE CHECK Lead Channel Setting Pacing Amplitude 2.000 CV DEVICE CHECK Lead Channel Setting Pacing Pulse Width 0.4 CV DEVICE CHECK Lead Channel Impedance Value 703 CV DEVICE CHECK Lead Channel Pacing Threshold Amplitude 1.500 CV DEVICE CHECK Lead Channel Pacing Threshold Pulse Width 0.4 CV DEVICE CHECK Lead Channel Pacing Threshold Date 2025-04-04 CV DEVICE CHECK Lead Channel Setting Pacing Amplitude 2.000 CV DEVICE CHECK Lead Channel Setting Pacing Pulse Width 0.4 CV DEVICE CHECK Jon Setting Mode (NBG Code) DDD CV DEVICE CHECK Ventricular chambers paced during SUGAR [employer]E GROWER pacing. LVOnly CV DEVICE CHECK Jon Setting Lower Rate Limit 50 CV DEVICE CHECK Jon Setting AT Mode Switch Rate 171 CV DEVICE CHECK Jon Setting Maximum Tracking Rate 130 CV DEVICE CHECK Jno Setting Maximum Sensor Rate 130 CV DEVICE CHECK Jon Setting PAV Delay 150 CV DEVICE CHECK Jon Setting ZHEN Delay 110 CV DEVICE CHECK Therapy Statistic Recent Shocks Delivered 0 CV DEVICE CHECK Therapy Statistic Recent Shocks Aborted 0 CV DEVICE CHECK Therapy Statistic Recent ATP Delivered 0 CV DEVICE CHECK RV HV Impedance 71 CV D EVICE CHECK Zone Setting Type Category AT/AF CV DEVICE CHECK Rate 171 CV DEVICE CHECK Therapies All Rx Off CV DEVICE CHECK Zone Setting Status Monitor CV DEVICE CHECK Zone ID 2 CV DEVICE CHECK Zone Setting Type Category VF CV DEVICE CHECK Rate 200 CV DEVICE CHECK Therapies ATP During Charging, 35Jx6 CV DEVICE CHECK Zone Setting Status On CV DEVICE CHECK Zone ID 3 CV DEVICE CHECK Zone Setting Type Category VT CV DEVICE CHECK Zone Setting Status Off CV DEVICE CHECK Zone ID 4 CV DEVICE CHECK Zone Setting Type Category VT CV DEVICE CHECK Zone Setting Status Off CV DEVICE CHECK Zone ID 5 CV DEVICE CHECK Zone Setting Type Category VT CV DEVICE CHECK Rate 133 CV DEVICE CHECK Rate 167 CV DEVICE CHECK Zone Setting Status ENABLED CV DEVICE CHECK Zone ID 6 CV DEVICE CHECK Date of Service 2025-05-27 CV DEVICE CHECK Anatomical Region Laterality Modality Device Interroga tion 04/04/2025 4:38 AM EDT Impressions 04/10/2025 8:59 AM EDT Heart Failure Diagnostic: Stable * Heart failure diagnostics assessed through the device * Status: Stable * No overt HF present Narrative Procedure Note Adeline Webber MD - 04/10/2025 IMPRESSION: Heart Failure Diagnostic: Stable * Heart failure diagnostics assessed through the device * Status: Stable * No overt HF present us Adeline Webber MD CV IMPLANTABLE CARDIAC DEVICE PROCEDURES Final Result * ECG 12 lead (02/26/2025 2:48 PM EDT) Only the most recent of2 resultswithin the time period is included. Ventricular Rate ECG 72 BPM GEMUSE Atrial Rate 72 BPM GEMUSE P-R Interval 134 ms GEMUSE QRS Duration 120 ms GEMUSE Q-T Interval 438 ms GEMUSE QTc 479 ms GEMUSE P Wave [place] 40 degrees GEMUSE R [place] -15 degrees GEMUSE T [place] 146 degrees GEMUSE ECG Interpretation Atrial-sensed ventricular-pa kilo rhythm , PAC's Abnormal ECG When compared with ECG of 05-FEB-2025 13:32, No significant change was found Confirmed by ADELINE BUSTOS ([id number]) on 02/26/2025 3:16:29 PM GEMUSE 02/26/2025 2:48 PM EDT 02/26/2025 3:16 PM EDT us Adeline Bustos MD ECG ORDERABLES Final Result GEMUSE * ECG-Annotated (02/06/2025) us Provider Onbase ECG ORDERABLES Final Result * CT Chest wo Contrast (02/05/2025 5:27 PM EDT) Anatomical Region Laterality Modality Body Computed Tomogra phy 02/05/2025 6:14 PM EDT Addenda Addendum by Oniel Garcia MD on 02/05/2025 6:18 PM EDT ADDENDUM: Tiny subcentimeter bilateral pulmonary nodules measuring no more than 3 mm. Per Fleischner criteria: Low-risk patients: No routine follow-up required. High-risk patients: Optional CT at 12 months. This document has been electronically signed by: Oniel Garcia MD on 02/05/2025 18:18:01 Impressions 02/05/2025 6:14 PM EDT 1. 3.1 cm descending thoracic aortic aneurysm. Attention on follow-up. 2. Nonspecific bilateral multifocal patchy ground-glass attenuation. Infectious/inflammatory etiologies considered. This document has been electronically signed by: Oniel Garcia MD on 02/05/2025 18:14:45 Narrative 02/05/2025 6:14 PM EDT INDICATION: aneurysm CT chest without contrast Comparison: None provided Findings: Trace pericardial effusion. Left cardiac pacing device. Diffuse atheromatous plaque disease throughout the aorta and branch vessels. Ectasia of the descending thoracic aorta superior to the hiatus. 3.1 cm descending thoracic aortic aneurysm. The visualized thyroid is unremarkable. Mildly prominent mediastinal nodes, may be reactive. Atelectasis. Nonspecific bilateral multifocal patchy ground-glass attenuation. No significant pleural effusion or pneumothorax. Bilateral hypodense, intermediate dense renal cysts. If clinical concern persists consider follow-up MRI. Thoracic diffuse idiopathic skeletal hyperostosis. Osteopenia. Procedure Note Oniel Garcia MD - 02/05/2025 INDICATION: aneurysm CT chest without contrast Comparison: None provided Findings: Trace pericardial effusion. Left cardiac pacing device. Diffuse atheromatous plaque diseasethroughout the aorta and branch vessels. Ectasia of the descending thoracic aorta superior to the hiatus. 3.1 cm descending thoracic aortic aneurysm. The visualized thyroid is unremarkable. Mildly prominent mediastinal nodes, may be reactive. Atelectasis. Nonspecific bilateral multifocal patchy ground-glass attenuation. No significant pleural effusion or pneumothorax. Bilateral hypodense, intermediate dense renal cysts. If clinical concern persists consider follow-up MRI. Thoracic diffuse idiopathic skeletal hyperostosis. Osteopenia. IMPRESSION: 1. 3.1 cm descending thoracic aortic aneurysm. Attention on follow-up. 2. Nonspecific bilateral multifocal patchy ground-glass attenuation. Infectious/inflammatory etiologies considered. This document has been electronically signed by: Oniel Garcia MD on 02/05/2025 18:14:[address] PROCEDURES Edited Resu lt - Final * Troponin I high sensitivity (02/05/2025 4:13 PM EDT) Only the most recent of2 resultswithin the time period is included. High Sensitivity Troponin I 19 <=54 ng/L LAB CHEMISTRY METHOD 02/05/2025 4:51 PM EDT [facility] Blood Venous blood specimen / Unknown Venipuncture / Unknown 02/05/2025 4:13 PM EDT 02/05/2025 4:23 PM EDT Narrative [facility] - 02/05/2025 4:51 PM EDT High levels of biotin in samples may falsely decrease hsTroponin values. Use caution when interpreting hsTroponin results in patients taking biotin who exhibit renal impairment (eGFR <60) or in patients taking more than 20 mg/day of biotin. us Roldan CHERRY LAB BLOOD ORDERABLES Final Re sult [facility] ([facility]) [facility] [address] [place] [address], [place] [phone] * XR Chest 2 Views (02/05/2025 2:34 PM EDT) Anatomical Region Laterality Modality Body Radiographic Breanna ging 02/05/2025 4:18 PM EDT Impressions 02/05/2025 4:19 PM EDT FINDINGS/IMPRESSION: Left pacer/implantable cardiac defibrillator. Tortuous aorta with ascending aortic ectasia or aneurysm. Persistent elevation left hemidiaphragm. No consolidation or significant effusion. No overt pulmonary edema. Degenerative changes. -------- FINAL REPORT -------- Dictated By: Og Tejada Dictated Date: 02/05/2025 16:18 ET Assigned Physician: Og Tejada Reviewed and Electronically Signed By: Og Tejada Signed Date: 02/05/2025 16:19 ET Workstation ID: [id number] Transcribed By: Self Edit Transcribed Date: 02/05/2025 16:18 ET Narrative 02/05/2025 4:19 PM EDT XR CHEST 2 VIEWS INDICATION: dyspnea TECHNIQUE: XR CHEST 2 VIEWS COMPARISON: No priors available. Procedure Note Og Tejada MD - 02/05/2025 XR CHEST 2 VIEWS INDICATION: dyspnea TECHNIQUE: XR CHEST 2 VIEWS COMPARISON: No priors available. IMPRESSION: FINDINGS/IMPRESSION: Left pacer/implantable cardiac defibrillator.Tortuous aorta with ascending aortic ectasia or aneurysm. Persistentelevation left hemidiaphragm. No consolidation or significant effusion.No overt pulmonary edema. Degenerative changes. -------- FINAL REPORT -------- Dictated By: Og Tejada Dictated Date: 02/05/2025 16:18 ET Assigned Physician: Og Tejada Reviewed and Electronically Signed By: Og Tejada Signed Date: 02/05/2025 16:19 ET Workstation ID: [id number] Transcribed By: Self Edit Transcribed Date: 02/05/2025 16:18 ET us Mohamud Guzman MD IMG XR PROCEDURES Final Result * Respiratory virus panel molecular study (02/05/2025 1:49 PM EDT) Adenovirus Detection by PCR Not Detected Not Detected LAB MICROBIOLOGY METHOD 02/05/2025 3:05 PM EDT [facility] Influenza A PCR Not Detected Not Detected LAB MICROBIOLOGY METHOD 02/05/2025 3:05 PM EDT [facility] Influenza B PCR Not Detected Not Detected LAB MICROBIOLOGY METHOD 02/05/2025 3:05 PM EDT [facility] Coronavirus 229E Not Detected Not Detected LAB MICROBIOLOGY METHOD 02/05/2025 3:05 PM EDT [facility] Coronavirus HKU1 Not Detected Not Detected LAB MICROBIOLOGY METHOD 02/05/2025 3:05 PM EDT [facility] Coronavirus OC43 Not Detected Not Detected LAB MICROBIOLOGY METHOD 02/05/2025 3:05 PM EDT [facility] Coronavirus NL63 Not Detected Not Detected LAB MICROBIOLOGY METHOD 02/05/2025 3:05 PM EDT [facility] Parainfluenza Virus 1 Not Detected Not Detected LAB MICROBIOLOGY METHOD 02/05/2025 3:05 PM EDT [facility] Parainfluenza Virus 2 Not Detected Not Detected LAB MICROBIOLOGY METHOD 02/05/2025 3:05 PM EDT [facility] Parainfluenza Virus 3 Not Detected Not Detected LAB MICROBIOLOGY METHOD 02/05/2025 3:05 PM EDT [facility] Parainfluenza Virus 4 Not Detected Not Detected LAB MICROBIOLOGY METHOD 02/05/2025 3:05 PM EDT [facility] RSV PCR Not Detected Not Detected LAB MICROBIOLOGY METHOD 02/05/2025 3:05 PM EDT [facility] Human Metapneumovirus A and B Not Detected Not Detected LAB MICROBIOLOGY METHOD 02/05/2025 3:05 PM EDT [facility] Rhinovirus/Entero virus Not Detected Not Detected LAB MICROBIOLOGY METHOD 02/05/2025 3:05 PM EDT [facility] Bordetella pertussis Not Detected Not Detected LAB MICROBIOLOGY METHOD 02/05/2025 3:05 PM EDT [facility] Bordetella parapertussis Not Detected Not Detected LAB MICROBIOLOGY METHOD 02/05/2025 3:05 PM EDT [facility] Mycoplasma pneumo by PCR Not Detected Not Detected LAB MICROBIOLOGY METHOD 02/05/2025 3:05 PM EDT [facility] Chlamydia pneumoniae Not Detected Not Detected LAB MICROBIOLOGY METHOD 02/05/2025 3:05 PM EDT [facility] SARS COV-2 Not Detected Not Detected LAB MICROBIOLOGY METHOD 02/05/2025 3:05 PM EDT [facility] Swab Both anterior nares / Unknown Non-blood Collection / Unknown 02/05/2025 1:49 PM EDT 02/05/2025 1:56 PM EDT Narrative [facility] - 02/05/2025 3:05 PM EDT Testing was performed using the Up[employer] Respiratory Pathogen PCR Assay. All results must be correlated with the clinical findings. Results should not be used as the sole basis for diagnosis. False Negative results may occur from the presence of sequence variants in the region targeted by the assay or the presence of inhibitors. Results may be affected by concurrent antiviral/antimicrobial therapy or levels of organisms that are below the limit of detection. Mohamud Guzman MD LAB MICROBIOLOGY - GENERAL JACKELYN PRATHER Final Result [facility] [address] [place] [address], [place] [phone] * (ABNORMAL) CBC auto differential (02/05/2025 1:49 PM EDT) [facility] WBC 6.0 4.8 - 10.8 K/mcL LAB HEMETOLOGY METHOD 02/05/2025 2:05 PM [facility] RBC 3.70(L) 3.80 - 4.80 M/mcL LAB HEMETOLOGY METHOD 02/05/2025 2:05 PM [facility] Hemoglobin 10.4(L) 11.5 - 16.0 g/dL LAB HEMETOLOGY METHOD 02/05/2025 2:05 PM [facility] Hematocrit 34.8(L) 35.0 - 47.0 % LAB HEMETOLOGY METHOD 02/05/2025 2:05 PM [facility] MCV 94.3 79.0 - 98.0 FL LAB HEMETOLOGY METHOD 02/05/2025 2:05 PM [facility] MCH 28.2 27.0 - 32.0 pcg LAB HEMETOLOGY METHOD 02/05/2025 2:05 PM [facility] MCHC 29.9(L) 32.0 - 37.0 g/dL LAB HEMETOLOGY METHOD 02/05/2025 2:05 PM [facility] RDW 13.0 11.0 - 15.0 % LAB HEMETOLOGY METHOD 02/05/2025 2:05 PM [facility] Platelets 175 130 - 400 K/mcL LAB HEMETOLOGY METHOD 02/05/2025 2:05 PM [facility] MPV 11.6(H) 7.0 - 11.0 FL LAB HEMETOLOGY METHOD 02/05/2025 2:05 PM [facility] NRBC 0.0 <1.0 % LAB HEMETOLOGY METHOD 02/05/2025 2:05 PM [facility] NRBC Absolute 0.00 <0.10 K/mcL LAB HEMETOLOGY METHOD 02/05/2025 2:05 PM [facility] Neutrophils Relative 62.6 % LAB HEMETOLOGY METHOD 02/05/2025 2:05 PM [facility] Lymphocytes Relative 23.5 % LAB HEMETOLOGY METHOD 02/05/2025 2:05 PM [facility] Monocytes Relative 7.2 % LAB HEMETOLOGY METHOD 02/05/2025 2:05 PM [facility] Eosinophils Relative 5.9 % LAB HEMETOLOGY METHOD 02/05/2025 2:05 PM [facility] Basophils Relative 0.5 % LAB HEMETOLOGY METHOD 02/05/2025 2:05 PM [facility] Immature Granulocytes Relative 0.3 % LAB HEMETOLOGY METHOD 02/05/2025 2:05 PM [facility] Neutrophils Absolute 3.74 1.50 - 7.00 K/mcL LAB HEMETOLOGY METHOD 02/05/2025 2:05 PM [facility] Lymphocytes Absolute 1.40 1.00 - 5.00 K/mcL LAB HEMETOLOGY METHOD 02/05/2025 2:05 PM [facility] Monocytes Absolute 0.43 0.20 - 1.00 K/mcL LAB HEMETOLOGY METHOD 02/05/2025 2:05 PM [facility] Eosinophils Absolute 0.35 0.00 - 0.50 K/mcL LAB HEMETOLOGY METHOD 02/05/2025 2:05 PM [facility] Basophils Absolute 0.03 0.00 - 0.20 K/mcL LAB HEMETOLOGY METHOD 02/05/2025 2:05 PM [facility] Immature Granulocytes Absolute 0.02 0.00 - 0.03 K/mcL LAB HEMETOLOGY METHOD 02/05/2025 2:05 PM [facility] Blood Venous blood specimen / Unknown Venipuncture / Unknown 02/05/2025 1:49 PM EDT 02/05/2025 1:56 PM EDT us Mohamud Guzman MD LAB BLOOD ORDERABLES Final Resu lt [facility] [address] [place] [address], [place] [phone] * B-type natriuretic peptide (02/05/2025 1:49 PM EDT) BNP 73 <=100 pcg/mL LAB CHEMISTRY METHOD 02/05/2025 2:42 PM EDT [facility] Blood Venous blood specimen / Unknown Venipuncture / Unknown 02/05/2025 1:49 PM EDT 02/05/2025 1:56 PM EDT us Mohamud Guzman MD LAB BLOOD ORDERABLES Final Resu lt Performing Organization Address City/[facility]/ZIP Co de Phone Number [facility] [address] [place] [address], [place] [phone] * (ABNORMAL) Basic metabolic panel (02/05/2025 1:49 PM EDT) Sodium 144 133 - 145 mmol/L LAB CHEMISTRY METHOD 02/05/2025 2:27 PM EDT [facility] Potassium 4.0 3.5 - 5.5 mmol/L LAB CHEMISTRY METHOD 02/05/2025 2:27 PM EDT [facility] Chloride 107 96 - 110 mmol/L LAB CHEMISTRY METHOD 02/05/2025 2:27 PM EDT [facility] CO2 29 21 - 32 mmol/L LAB CHEMISTRY METHOD 02/05/2025 2:27 PM EDT [facility] Anion Gap 8 3 - 11 LAB CHEMISTRY METHOD 02/05/2025 2:27 PM EDT [facility] Glucose 110(H) 70 - 100 mg/dL LAB CHEMISTRY METHOD 02/05/2025 2:27 PM EDT [facility] BUN 32(H) 5 - 25 mg/dL LAB CHEMISTRY METHOD 02/05/2025 2:27 PM EDT [facility] Creatinine 1.84(H) 0.50 - 1.10 mg/dL LAB CHEMISTRY METHOD 02/05/2025 2:27 PM EDT [facility] eGFR 28(L) >=60 mL/min/1. 73m2 LAB CHEMISTRY METHOD 02/05/2025 2:27 PM EDT [facility] Comment:Calculation based on the Chronic Kidney Disease Epidemiology Collaboration (CKD-EPI) equation refit without adjustment for race. BUN/Creatinine Ratio 17.4 LAB CHEMISTRY METHOD 02/05/2025 2:27 PM EDT [facility] Calcium 8.8 8.5 - 10.5 mg/dL LAB CHEMISTRY METHOD 02/05/2025 2:27 PM EDT [facility] Blood Venous blood specimen / Unknown Venipuncture / Unknown 02/05/2025 1:49 PM EDT 02/05/2025 1:56 PM EDT us Mohamud Guzamn MD LAB BLOOD ORDERABLES Final Resu lt [facility] [address] [place] [address], * BREA DEXA AXIAL SKELETON (06/22/2023 8:01 AM EDT) Anatomical Region Laterality Modality Mammography 06/21/2023 1:56 PM EDT Narrative 06/22/2023 8:01 AM EDT [facility] Diagnostic Imaging Department [address] [place] [address] Patient: DARRIN ROSEDOREEN./Age/Sex: 1950 - 72 - F Unit#: [id number] Location/Status: SPDIMAM/REG CLI Mnemonic/Ordering Site: MAMDEXAAX/SPMAM Ordering Physician: FRANCISCO VICK MD Brea Dexa Axial Skeleton - 06/21/23 - [id number] Report Status:Signed HISTORY: The patient is a 72-year-old postmenopausal female with clinical concern for metabolic bone disease. FINDINGS: Dual energy x-ray absorptiometry of the lumbar spine and femurs is performed. The mean bone mineral density at L1-L4 is 0.917 gm/cm2 which is 78% of that of young normals and 86% of that of age matched controls. This yields a T-score of -2.2 and a Z-score of -1.2 which is diagnostic of osteopenia. The mean bone mineral density of the femurs bilaterally is 0.851 gm/cm2 which is 84% of that of young normals and 98% of that of age matched controls. This yields a T-score of -1.2 and a Z-score of -0.1 which is diagnostic of osteopenia. However, the T-score of the left femoral neck is -2.6 which is diagnostic of osteoporosis. IMPRESSION: 1. Osteoporosis. 2. FRAX analysis yields a 10-year probability of major osteoporotic fracture of 6.6% and a 10-year probability of hip fracture of 1.4%. Code 35206 Dictating Physician: NEAL ROWLAND MD Electronically Signed by: NEAL ROWLAND MD Dic Date/Time: 06/22/23799 Sign date/Time: 06/22/23800 Procedure Note Neal Rowland MD - 09/25/2023 [facility] Diagnostic Imaging Department [address] [place] [address] [id number] Patient: DOREEN FISHER D.O.B./Age/Sex: 1950 - 72 - F Unit#: [id number] Location/Status: SPDIMA/REG CLI [facility] Ordering Physician: FRANCISCO VICK MD Brea Dexa Axial Skeleton - 06/21/23 [id number] Report Status:Signed HISTORY: The patient is a 72-year-old postmenopausal female withclinical concern for metabolic bone disease. FINDINGS: Dual energy x-ray absorptiometry of the lumbar spine and femursis performed. The mean bone mineral density at L1-L4 is 0.917 gm/cm2 which is78% of that of young normals and 86% of that of age matched controls. Thisyields a T-score of -2.2 and a Z-score of -1.2 which is diagnostic of osteopenia. The mean bone mineral density of the femurs bilaterally is 0.851 gm/yb5horlx is 84% of that of young normals and 98% of that of age matched controls.This yields a T-score of -1.2 and a Z-score of -0.1 which is diagnostic of osteopenia. However, the T-score of the left femoral neck is -2.6 whichis diagnostic of osteoporosis. IMPRESSION: 1. Osteoporosis. 2. FRAX analysis yields a 10-year probability of major osteoporoticfracture of 6.6% and a 10-year probability of hip fracture of 1.4%. Code 90732 Dictating Physician: NEAL ROWLAND MD Electronically Signed by: NEAL ROWLAND MD Dic Date/Time: 06/22/23799 Sign date/Time: 06/22/23800 Francisco Vick MD IMG BI PROCEDURES Final Result * [facility] SCREENING DIGITAL (06/21/2023 3:17 PM EDT) Anatomical Region Laterality Modality Mammography 06/21/2023 1:58 PM EDT Narrative 06/21/2023 3:17 PM EDT [facility] Diagnostic Imaging Department [address] [place] [address] Patient: DOREEN FISHER D.O.B./Age/Sex: 1950 - 72 - F Unit#: [id number] Location/Status: [facility] Mnemonic/Ordering Site: [facility] Ordering Physician: FRANCISCO VICK MD [facility] Screening Digital - 06/21/23 - [id number] Report Status:Signed EXAM: [facility] Screening Digital EXAM DATE AND TIME: 06/21/2023 2:18 PM HISTORY: Annual screening COMPARISON: Multiple exams dating back to 2013 TECHNIQUE: Bilateral digital breast tomosynthesis was performed in the CC and MLO projections. Computer aided detection with Cubicle 3D 3.1 was employed. TISSUE DENSITY: c. The breasts are heterogeneously dense, which may obscure small masses. FINDINGS: No suspicious masses, grouped microcalcifications, or areas of architectural distortion are seen. The skin and vascularity are unremarkable. IMPRESSION: Stable mammographic appearance of the breasts. No evidence of malignancy is seen. A negative mammogram in the presence of a clinically suspicious palpable abnormality does not preclude the possibility of malignancy or alter the indications for biopsy. BI-RADS: Category 1: Negative RECOMMENDATION(S): 1: Routine screening mammogram BILATERAL in 1 year. 8011F, 7000F Dictating Physician: ADELINE TRENT MD Electronically Signed by: ADELINE TRENT MD Dic Date/Time: 06/21/231515 Sign date/Time: 06/21/231516 Procedure Note Adeline Trent MD - 09/25/2023 [facility] Diagnostic Imaging Department [address] [place] [id number] Patient: DOREEN FISHER /Age/Sex: 1950 - 72 - F Unit#: [id number] [facility] Mn[facility]onic/Ordering Site: [facility] Ordering Physician: FRANCISCO VICK MD [facility] Screening Digital - 06/21/23 - [id number] Report Status:Signed EXAM: [facility] Screening Digital EXAM DATE AND TIME: 06/21/2023 2:18 PM HISTORY: Annual screening COMPARISON: Multiple exams dating back to 2013 TECHNIQUE: Bilateral digital breast tomosynthesis was performed in the CCand MLO projections. Computer aided detection with iCAD Tunesat AI 3D 3.1was employed. TISSUE DENSITY: c. The breasts are heterogeneously dense, which mayobscure small masses. FINDINGS: No suspicious masses, grouped microcalcifications, or areas ofarchitectural distortion are seen. The skin and vascularity are unremarkable. IMPRESSION: Stable mammographic appearance of the breasts. No evidence of malignancyis seen. A negative mammogram in the presence of a clinically suspicious palpable abnormality does not preclude the possibility of malignancy or alter the indications for biopsy. BI-RADS: Category 1: Negative RECOMMENDATION(S): 1: Routine screening mammogram BILATERAL in 1 year. 3341F, 7025F Dictating Physician: ADELINE TRENT MD Electronically Signed by: ADELINE TRENT MD Dic Date/Time: 06/21/231515 Sign date/Time: 06/21/231516 Result [facility] Francisco Vick MD IMG BI PROCEDURES Final Result * Lipid panel (05/22/2022) Pathologist [facility] LDL/HDL Ratio 2 0 - 4 Triglycerides 147 0 - 150 mg/dL Cholesterol 169 0 - 200 mg/dL HDL 70 >=40 mg/dL LDL Cholesterol 70 0 - 100 mg/dL Blood Venous blood specimen / Unknown Result [facility] Historical Provider LAB BLOOD ORDERABLES Anca l Result * Colonoscopy (01/03/2021) Pathologist [facility] Colonoscopy abstracted, no interpretation Anatomical Region Laterality Modality Other Historical [facility] Final Result * Hepatitis C Screening (12/10/2017) Pathologist [facility] Hepatitis C Screening abstracted Historical Provider HEALTH MAINTENANCE Final Result from Last 3 Months or Most Recently Relevant to Health Maintenance Insurance [facility] Member Subscriber Plan / Payer (Ef fective 2015-Present) Name:Doreen Fisher Relation to Subscriber:Self Name:Doreen Fisher Payer ID:[id number] Group ID:[id number] Type:Not on file Address: [facility] [address] [id number] Advance Directives Documents on File Type Date Recorded 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 Health Care Decision (hx) 04/09/2019 AD GANDARA DIRECTIVE Health Care Decision (hx) 04/09/2019 AD GANDARA DIRECTIVE Health Care Decision (hx) 04/09/2019 AD GANDARA DIRECTIVE Health Care Decision (hx) 04/09/2019 AD GANDARA DIRECTIVE Health Care Decision (hx) 04/09/2019 AD GANDARA DIRECTIVE Health Care Decision (hx) 04/09/2019 AD GANDARA DIRECTIVE Health Care Decision (hx) 04/09/2019 AD GANDARA DIRECTIVE Health Care Decision (hx) 04/09/2019 AD GANDARA DIRECTIVE Health Care Decision (hx) 04/09/2019 AD GANDARA DIRECTIVE Health Care Decision (hx) 04/09/2019 AD GANDARA DIRECTIVE Health Care Decision (hx) 04/09/2019 AD GANDARA DIRECTIVE Health Care Decision (hx) 04/09/2019 AD GANDARA DIRECTIVE Health Care Decision (hx) 04/09/2019 AD GANDARA DIRECTIVE Health Care Decision (hx) 04/09/2019 AD GANDARA DIRECTIVE Health Care Decision (hx) 04/09/2019 AD GANDARA DIRECTIVE Health Care Decision (hx) 04/09/2019 AD GANDARA DIRECTIVE Health Care Decision (hx) 04/09/2019 AD GANDARA DIRECTIVE Health Care Decision (hx) 04/04/2019 AD GANDARA DIRECTIVE Health Care Decision (hx) 04/04/2019 AD GANDARA DIRECTIVE Health Care Decision (hx) 04/04/2019 AD GANDARA DIRECTIVE Health Care Decision (hx) 04/04/2019 AD GANDARA DIRECTIVE Health Care Decision (hx) 04/04/2019 AD GANDARA DIRECTIVE Health Care Decision (hx) 04/04/2019 AD GANDARA DIRECTIVE Health Care Decision (hx) 04/04/2019 AD GANDARA DIRECTIVE Health Care Decision (hx) 04/04/2019 AD GANDARA DIRECTIVE Health Care Decision (hx) 04/04/2019 AD GANDARA DIRECTIVE Health Care Decision (hx) 04/04/2019 AD GANDARA DIRECTIVE Health Care Decision (hx) 04/04/2019 AD GANDARA DIRECTIVE Health Care Decision (hx) 04/04/2019 AD GANDARA DIRECTIVE Health Care Decision (hx) 04/04/2019 AD GANDARA DIRECTIVE Health Care Decision (hx) 04/04/2019 AD GANDARA DIRECTIVE Health Care Decision (hx) 04/04/2019 AD GANDARA DIRECTIVE Health Care Decision (hx) 04/04/2019 AD GANDARA DIRECTIVE Health Care Decision (hx) 04/04/2019 AD GANDARA DIRECTIVE Health Care Decision (hx) 09/03/2018 AD GANDARA DIRECTIVE Health Care Decision (hx) 09/03/2018 AD GANDARA DIRECTIVE Health Care Decision (hx) 09/03/2018 AD GANDARA DIRECTIVE Health Care Decision (hx) 09/03/2018 AD GANDARA DIRECTIVE Health Care Decision (hx) 09/03/2018 AD GANDARA DIRECTIVE Health Care Decision (hx) 09/03/2018 AD GANDARA DIRECTIVE Health Care Decision (hx) 09/03/2018 AD GANDARA DIRECTIVE Health Care Decision (hx) 09/03/2018 AD GANDARA DIRECTIVE Health Care Decision (hx) 09/03/2018 AD GANDARA DIRECTIVE Health Care Decision (hx) 09/03/2018 AD GANDARA DIRECTIVE Health Care Decision (hx) 09/03/2018 AD GANDARA DIRECTIVE Health Care Decision (hx) 09/03/2018 AD GANDARA DIRECTIVE Health Care Decision (hx) 09/03/2018 AD GANDARA DIRECTIVE Health Care Decision (hx) 09/03/2018 AD GANDARA DIRECTIVE Health Care Decision (hx) 09/03/2018 AD GANDARA DIRECTIVE Health Care Decision (hx) 09/03/2018 AD GANDARA DIRECTIVE Health Care Decision (hx) 09/03/2018 AD GANDARA DIRECTIVE Care Teams Sports Information Director Relationship Specialty Start Date End Date Francisco Vick MD [address] [place] [phone] PCP - General Internal Medicine 08/01/24
== END 2025-05-06 11:56 | disposition home or self-care (01) ==
LOC: HO.HSMS 11:18
PROVIDERS: PCP Internal Medicine; Visit Provider Psychiatry & Neurology Neurology
DX: G51.32 Clonic hemifacial spasm, left (principal)
CPT/HCPCS: 64612

== ENCOUNTER → 2025-05-06 11:17 | Outpatient (BNVA) | payer OTHER, SELFPAY | PROVIDERS: PCP Internal Medicine; Visit Provider Psychiatry & Neurology Neurology | DX: G51.32 Clonic hemifacial spasm, left (principal); G47.33 Obstructive sleep apnea (adult) (pediatric); G47.61 Periodic limb movement disorder | CPT/HCPCS: 64612; 99211; J0585 ==